=== PATIENT | female | born 1990 | race Two or more races ===

== ENCOUNTER → 2024-04-10 | Outpatient (CLI) | payer MEDICAID, SELFPAY ==
--- NOTE | 2024-04-10 | XR_ITS ---
Examination: CT abdomen with intravenous contrast CT pelvis with intravenous contrast 2-D coronal reconstructions 2-D sagittal reconstructions Date and time of exam:April 10, 2024 1027 hours Comparison October 22, 2021 INDICATIONS: Abdominal pain 3 weeks, hematochezia. CTDI: vol (mGy) 20.5 DLP: (mGycm) 727 Technique: Multiple axial sections of the abdomen and pelvis have been obtained. 64 slice high-resolution scanner used. 3 mm axial sections have been obtained, post intravenous injection 60 cc Isovue-370 2-D sagittal, coronal reconstructions obtained. Low dose protocols were performed. One or more of the following dose reduction techniques were used; automated exposure control, adjustment of the mA and/or KV according to patient size, use of iterative reconstruction technique. Findings: Diffuse fatty liver, marked hepatomegaly 26 cm Splenomegaly 16 cm Absent gallbladder Biliary stent satisfactory position No intra or extrahepatic biliary tract dilatation No pancreatic mass or peripancreatic edema No hydronephrosis No bowel obstruction 24 mm umbilical hernia containing incarcerated fat Absent gallbladder Anteverted uterus intrauterine device satisfactory position Right ovarian follicular cysts Densities within the urinary bladder which may represent blood clot with thickening of the urinary bladder wall up to 4 mm Osseous structures intact IMPRESSION: Significant hepatosplenomegaly Fatty liver Biliary stent satisfactory position 24 mm umbilical hernia containing incarcerated fat Multiple densities in the urinary bladder which may represent blood clot, other etiologies not excluded, recommend urinary bladder sonography follow-up
[2024-04-10 10:08] LABS: HCG Qualitative,Urine Negative
== END | disposition home or self-care (01) ==
LOC: CCTX 08:47
PROVIDERS: PCP Family Medicine; Referring Provider Internal Medicine; Visit Provider Internal Medicine
DX: R16.2 Hepatomegaly with splenomegaly, not elsewhere classified (principal); K76.0 Fatty (change of) liver, not elsewhere classified; K42.9 Umbilical hernia without obstruction or gangrene; N32.89 Other specified disorders of bladder; Z32.00 Encounter for pregnancy test, result unknown
CPT/HCPCS: 74177; 81025; A4649; Q9967

== ENCOUNTER 2024-04-23 18:55 | Emergency (ER) | payer MEDICAID, SELFPAY ==
[2024-04-23 19:30] VITALS: BP 144/93; PULSE 117; RESP 18; TEMP 37.2; O2SAT 97
--- NOTE | 2024-04-23 19:34 | EKG_ITS ---
[facility] Test Date: 2024-04-23 Pat Name: HERBIE GUZMAN Department: Room: - Gender: Female Youth Development Specialist: : 1990 Requested By: Rodo De La Cruz Order Number: [id number] Reading MD: Rodo De La Cruz Measurements Intervals [place] Rate: 120 P: 19 NV: 138 QRS: 33 QRSD: 73 T: 9 QT: 332 QTc: 470 Interpretive Statements SINUS TACHYCARDIA NONSPECIFIC T-WAVE ABNORMALITY ABNORMAL RHYTHM ECG Compared to ECG 10/11/2023 15:48:18 T-wave abnormality now present /store/S0/[id number].pdf
--- NOTE | 2024-04-23 19:34 | PD.EDRME ---
Rapid Medical Screening Exam RME Arrival date/time: 04/23/24 18:55 Chief Complaint: Abdominal Pain Time Seen by Provider: 04/23/24 18:58 Vital signs: Vital Signs Temperature 99.0 F 04/23/24 19:30 Pulse Rate 117 H 04/23/24 19:30 Respiratory Rate 18 04/23/24 19:30 Blood Pressure 144/93 H 04/23/24 19:30 Pulse Oximetry (%) 97 04/23/24 19:30 Oxygen Delivery Method Room Air 04/23/24 19:30 RME Narrative: RUQ abdominal pain and swelling x 3 days. Hx elvira with biliary stent last year, patient states she never got stent removed as instructed. Also c/o chest pain, anxiety.
--- NOTE | 2024-04-23 19:36 | XR_ITS ---
Examination: CT abdomen with intravenous contrast CT pelvis with intravenous contrast 2-D coronal reconstructions 2-D sagittal reconstructions Date and time of exam:April 23, 2024 1012 hrs. Comparison: April 10, 2024 Indications: Right-sided abdominal pain beginning 3 days ago. CTDI: vol (mGy) 21.11 DLP: (mGycm) 830 Technique: Multiple axial sections of the abdomen and pelvis have been obtained. 64 slice high-resolution scanner used. 3 mm axial sections have been obtained, post intravenous injection 60 cc Isovue-370 2-D sagittal, coronal reconstructions obtained. Low dose protocols were performed. One or more of the following dose reduction techniques were used; automated exposure control, adjustment of the mA and/or KV according to patient size, use of iterative reconstruction technique. Findings: Diffuse fatty infiltration throughout the liver with prominent hepatomegaly 27 cm Splenomegaly 15.6 cm Absent gallbladder Biliary stent satisfactory position No pancreatic mass No renal or ureteral calculi, no hydronephrosis Aorta normal size 21 mm umbilical hernia containing incarcerated fat No bowel obstruction Absent appendix Colonic diverticulosis Anteverted uterus with intrauterine device satisfactory position Urinary bladder wall thickening up to 9 mm Osseous structures intact Impression: Significant hepatosplenomegaly Fatty liver Biliary stent satisfactory position 21 mm umbilical hernia containing incarcerated fat Bladder wall thickening which may represent cystitis
[2024-04-23 20:28] LABS: Alanine Aminotransferase 29 U/L (10-49); Albumin, Serum 4.5 gm/dL (3.5-5.0); Albumin/Globulin Ratio 1.3 (1.2-2.2); Alkaline Phosphatase 219 U/L (46-116); Anion Gap 11 (7-16); Aspartate Amino Transferase 189 U/L (0-34); BUN/Creatinine Ratio 10 Ratio (12-20); Blood Urea Nitrogen < 5 mg/dL (9-23); Calcium 9.3 mg/dL (8.3-10.6); Calcium (Corrected) 9.3 mg/dL (8.5-10.1); Carbon Dioxide 26.5 mMol/L (20.0-31.0); Chloride 98 mMol/L (98-107); Creatinine (Component) 0.5 mg/dL (0.6-1.3); Globulin 3.5 gm/dL (2.3-3.5); Glucose 97 mg/dL (74-106); Lipase 50 U/L (12-53); Osmolality,Calculated 267 (275-295); Potassium 3.5 mMol/L (3.4-5.1); Sodium 135 mMol/L (136-145); Troponin I < 0.002 ng/mL (0.0-0.045); eGFR > 60 See Note
--- NOTE | 2024-04-23 20:45 | PD.EDABDPN ---
ED Abdominal Pain RME/HPI General Chief Complaint: Abdominal Pain Stated complaint: Right abdominal pain x 3 days Time seen by provider: 04/23/24 18:58 Arrival date/time: 04/23/24 18:55 Source: patient Mode of arrival: ambulatory Limitations: no limitations RME / HPI RME / HPI narrative: RUQ abdominal pain and swelling x 3 days. Hx elvira with biliary stent last year, patient states she never got stent removed as instructed. Also c/o chest pain, anxiety. Dr. Sumner?s Main ED Evaluation: 33-year-old female with history of hypertension who presents to the emergency department for complaints of right upper quadrant abdominal pain. Patient notes she had her gallbladder removed over a year ago with biliary stent placement. Patient states she was supposed to have stent removal 6 months ago but did not receive a call to schedule. She denies history of similar symptoms in the past. She notes burning sensation when urinating. She also notes she has urgency to urinate with little urine produced. She denies fever, chills, or any other medical complaints. Related Data Home Medications ?Medication ?Instructions ?Recorded ?Confirmed propranolol 20 mg tablet 20 mg PO BID 04/24/24 04/24/24 Allergies Allergy/AdvReac Type Severity Reaction Status Date / Time FISH Allergy Severe RASH AND Uncoded 10/15/23 05:58 SWELLING Review of Systems Review of Systems Systems Reviewed: All systems reviewed, normal except as documented Past Medical History Past Medical History NEUROLOGIC: Negative Neurological Disorders or Seizures CARDIAC: Negative Cardiac Disorders or Congestive Heart Failure RESPIRATORY: Negative Chronic Obstructive Pulmonary Disease (COPD) or Asthma GASTROINTESTINAL: Positive Gastrointestinal Disorders and Gall Bladder Disease GENITOURINARY: Negative Genitourinary Disorders or Renal Disease MUSCULOSKELETAL: Negative Musculoskeletal Disorders ENDOCRINE: Negative Endocrine Disorders, Diabetes Mellitus Type 1 or Diabetes Mellitus Type 2 HEMATOLOGIC: Negative Blood Disorders or Sickle Cell Disease OTHER HISTORY: Negative Autoimmune Disease, Falls, Blood Transfusions, Anesthesia Reactions or Organ Transplant Family History FAMILY HISTORY: Negative Family Psychiatric Problems, Family Respiratory Disorders, Family Cardiac Disorders, Family Gastrointestinal Problems, Family Cancer, Family Surgery or Family Anesthesia Reaction Surgical History SURGICAL: Negative Neurologic Surgery, Mastectomy, Lumpectomy, Hysterectomy, Tubal Ligation, Section, Vasectomy or Organ Transplant Social History SMOKING STATUS: Former smoker SECOND HAND EXPOSURE: No SUBSTANCE USE: does not use ED Exam Narrative Physical exam: GENERAL APPEARANCE: alert and oriented x 4, well-developed, well-nourished, no acute distress VITALS: All vitals were reviewed and the pulse ox is 97% on room air, which is normal according to my interpretation. HEENT: Normocephalic, atraumatic; pupils equal, round, reactive to light; EOMI; mucous membranes pink, moist; oropharynx clear NECK: Supple LUNGS: CTABL; no wheezes, no rales, no rhonchi HEART: Regular rate, regular rhythm; normal S1, S2; no murmurs ABDOMEN: There is hepatomegaly as well as splenomegaly. Minimally tender on palpation to right upper quadrant as well as right lower quadrant without rebound or guarding. No periumbilical tenderness. BACK: no CVA tenderness EXTREMITIES: atraumatic; no edema NEUROLOGIC: awake; alert and oriented x4; cranial nerves II-XII grossly intact; no focal sensory or motor deficits PSYCHIATRIC: appropriate mood and affect SKIN: warm, dry, normal color; no rashes General Limitations: Present no limitations Course Course Course Narrative: The patient was placed in ED observation care at 04/24/24 at 0250 hours. The patient was placed in ED observation care because of pending MRCP in the morning. The patients past medical history, social history, and family history were reviewed. The plan of care will include serial examinations. 0600: Care signed out to Dr. Pan (emergency physician). Past medical, surgical, social and family history reviewed. Vitals and home medications reviewed. Results and treatment plan discussed. They will assume the care of the patient at this time and will follow the patient, pending MRCP. At this time, observation has ended. Quality Measures none Orders Category Date Time Status CT Screening NOW Care 04/23/24 19:36 Active Tactical Deception Plans Officer Q4H START 00 Care 04/23/24 20:54 Active Continuous Pulse Oximetry NOW Care 04/23/24 20:54 Completed EKG (ED ONLY) *Do not use* NOW Care 04/23/24 19:34 Completed IV [Insert IV] NOW Care 04/23/24 20:54 Active MRI Screening NOW Care 04/24/24 02:59 Active Miscellaneous Nursing Order NOW Care 04/23/24 20:53 Active Miscellaneous Nursing Order NOW Care 04/23/24 20:54 Active NPO STAT Care 04/24/24 03:[address] abdomen pelvis w con Stat Exams 04/23/24 19:36 Completed EKG (ED Only) Stat Exams 04/23/24 19:34 Draft MR MRCP Stat Exams 04/24/24 Ordered US gall bladder Stat Exams 04/23/24 23:42 Taken CBC Stat Lab 04/23/24 19:59 Completed CMP [Comprehensive Metabolic Panel] Stat Lab 04/23/24 19:59 Completed Miranda-Coburn Virus Ab Panel* Stat Lab 04/24/24 03:35 Received HCG Qualitative,Urine Stat Lab 04/23/24 21:40 Completed Hepatitis A Antibody IgM Stat Lab 04/24/24 03:35 Received Hepatitis A Antibody, Total* Stat Lab 04/24/24 03:35 Received Hepatitis B Core Ab,Total* Stat Lab 04/24/24 03:35 Received Hepatitis B Core Antibody IgM Stat Lab 04/24/24 03:35 Received Hepatitis B DNA, Quant PCR* Stat Lab 04/24/24 03:35 Received Hepatitis B Surface Ab Stat Lab 04/24/24 03:35 Received Hepatitis B Surface Antigen Stat Lab 04/24/24 03:35 Received Hepatitis Be Antibody* Stat Lab 04/24/24 03:35 Received Hepatitis Be Antigen* Stat Lab 04/24/24 03:35 Received Hepatitis C Antibody Stat Lab 04/24/24 03:35 Received LDH (Lactate Dehydrogenase) Stat Lab 04/24/24 03:35 Completed Lactate (Lactic Acid) Stat Lab 04/23/24 21:25 Completed Lactate (Lactic Acid) Stat Lab 04/24/24 03:35 Completed Lipase Stat Lab 04/23/24 19:59 Completed Magnesium Stat Lab 04/24/24 03:35 Completed Partial Thromboplastin Time Stat Lab 04/24/24 03:35 Completed Phosphorous Stat Lab 04/24/24 03:35 Completed Procalcitonin Stat Lab 04/24/24 03:35 Completed Prothrombin Time with INR Stat Lab 04/24/24 03:35 Completed Troponin I Stat Lab 04/23/24 19:59 Completed UA [Urinalysis] Stat Lab 04/23/24 21:40 Completed Acetaminophen Ivpb [Ofirmev Inj] Med 04/23/24 20:55 Active 1,000 mg in 100 ml IV Q6H Morphine Inj Med 04/23/24 23:43 Active 2 mg IVP Q30M PRN Ondansetron Inj [Zofran Inj] Med 04/23/24 20:55 Discontinued 4 mg IV X1 ONE Piper/Tazo 3.375 gm [Zosyn] Med 04/23/24 23:44 Discontinued 3.375 gm in 50 ml IV X1 Sodium Chloride 0.9% 1000 ml [Ns] 1,000 ml Med 04/23/24 20:54 Discontinued IV 999 mls/hr Sodium Chloride 0.9% 1000 ml [Ns] 1,000 ml Med 04/24/24 00:51 Discontinued IV 999 mls/hr Reevaluation(s) Reevaluation #1: Patient is tachycardic in the 120s and still complains of abdominal pain. US gallbladder ordered to r/o a retained stone. Time: 23:41 Reevaluation #2: Patient is tachycardic and tachypneic. Due to the patient's persistent signs and symptoms, patient will need a MRCP in the morning. Hepatitis labs ordered. Time: 02:50 Vital Signs Vital signs: Vital Signs Temperature 99.0 F 04/23/24 19:30 Pulse Rate 117 H 04/23/24 19:30 Respiratory Rate 18 04/23/24 19:30 Blood Pressure 144/93 H 04/23/24 19:30 Pulse Oximetry (%) 97 04/23/24 19:30 Oxygen Delivery Method Room Air 04/23/24 19:30 Abdominal Pain MDM MDM Narrative MDM Narrative:: Scribe Attestation: Avelino Baltazar am scribing for and in the presence of Dr. Sumner. Provider Notation: Although this document has been carefully reviewed, there may still be some phonetic and other typographical errors. These errors are purely grammatical due to imperfections in the software program and should not be construed in any way to compromise the substance of the patient's medical care during this visit. Patient data External records reviewed:: [facility] previous records Clinical information provided by:: patient Social determinants that could affect healthcare access:: none Patient has the following chronic illnesses:: HTN, anxiety How is presenting disease/condition affected by chronic disease/condition?: uneffected by Evaluation data The following diagnostics were reviewed and interpreted by me:: lab results, radiology exam(s) and EKG tracing(s) Lab and/or radiology exams considered but not ordered:: None Interpretation Summary: CBC is normal, CMP is normal, Lactic Acid is normal, Lipase is normal, UA is negative for a UTI, HCG is negative, according to my interpretation. EKG done at 1940, sinus tachycardia, rate of 120, normal axis, no ectopy, no signs of acute ischemia, according to my interpretation. ---- [facility] Report Signed Patient: HERBIE GUZMAN Record#: [id number] Birthdate: 1990 Age/Sex: 33 / F Location: [facility] Attending Dr: Ordering Physician: Rodo De La Cruz PA-C Date of Service: 04/23/24 Procedure(s): CT abdomen pelvis w con Accession Number(s): [id number] cc: Eren Glaser MD; Cory De Luna MD; Rodo De La Cruz PA-C~ Examination: CT abdomen with intravenous contrast CT pelvis with intravenous contrast 2-D coronal reconstructions 2-D sagittal reconstructions Date and time of exam:April 23, 2024 1012 hrs. Comparison: April 10, 2024 Indications: Right-sided abdominal pain beginning 3 days ago. CTDI: vol (mGy) 21.11 DLP: (mGycm) 830 Technique: Multiple axial sections of the abdomen and pelvis have been obtained. 64 slice high-resolution scanner used. 3 mm axial sections have been obtained, post intravenous injection 60 cc Isovue-370 2-D sagittal, coronal reconstructions obtained. Low dose protocols were performed. One or more of the following dose reduction techniques were used; automated exposure control, adjustment of the mA and/or KV according to patient size, use of iterative reconstruction technique. Findings: Diffuse fatty infiltration throughout the liver with prominent hepatomegaly 27 cm Splenomegaly 15.6 cm Absent gallbladder Biliary stent satisfactory position No pancreatic mass No renal or ureteral calculi, no hydronephrosis Aorta normal size 21 mm umbilical hernia containing incarcerated fat No bowel obstruction Absent appendix Colonic diverticulosis Anteverted uterus with intrauterine device satisfactory position Urinary bladder wall thickening up to 9 mm Osseous structures intact Impression: Significant hepatosplenomegaly Fatty liver Biliary stent satisfactory position 21 mm umbilical hernia containing incarcerated fat Bladder wall thickening which may represent cystitis Dictated By: oCry De Luna MD Signed By: <Electronically signed by Cory De Luna MD in OV> 04/23/24 0530 ------- Telerad Preliminary Report Draft Patient: HERBIE GUZMAN. Record#: [id number] Birthdate: 1990 Age/Sex: 33 / F Location: [facility] Attending Dr: Ordering Physician: Date of Service: Procedure(s): Accession Number(s): cc: ~ Right upper quadrant abdominal ultrasound with doppler and wave doppler spectral analysis. April 24, 2024 at 0057 hours Clinical history: RUQ and epigastric pain, status post cholecystectomy. Rule out retained stone. Technique: Grayscale and color flow images of the right upper quadrant are provided. Hepatic and portal veins were also imaged with color flow images. Comparison: No prior study is available for comparison. Findings: The liver is enlarged demonstrates increased echogenicity. No intrahepatic biliary ductal dilatation. Status post cholecystectomy. The common bile duct is dilated in caliber at 5.8 mm. The pancreas is within normal limits. The right kidney is within normal limits. The main portal vein is patent with hepatopetal flow and normal wave Doppler spectral analysis. Impression: Mild dilated CBD in status post cholecystectomy, possibly functional. If choledocholithiasis is clinically suspected consider correlation with MRCP. Hepatomegaly associated with liver steatosis is suspicious for steatohepatitis. Report Electronically Signed By: Rene Garcia 04/24/2024 2:38:24 AM [EST] Medications / Prescriptions Medications or Prescriptions considered but not ordered:: None Medication administrations:: Medication Administration History Acetaminophen (Ofirmev Inj) 1,000 mg in 100 mls @ 250 mls/hr IV Q6H MELVIN Stop: 04/24/24 15:18 Last Admin: 04/24/24 04:05 Dose: Not Given Documented By: CVL Non-Admin Reason: Other, see note Comments: NOT NEEDED Infusion: 04/23/24 22:35 Dose: Infused Documented By: Admin: 04/23/24 21:41 Dose: 250 mls/hr Documented By: Morphine Sulfate (Morphine Sulf Inj 10 Mg/Ml Vial) 2 mg IVP Q30M PRN PRN Reason: abdominal pain Last Admin: 04/24/24 03:41 Dose: 2 mg Documented By: Admin: 04/23/24 23:47 Dose: 2 mg Documented By: CVL Discontinued Medications Sodium Chloride (Ns) 1,000 mls @ 999 mls/hr IV .Q1H1M ONE Stop: 04/23/24 21:54 Last Infusion: 04/23/24 23:39 Dose: Infused Documented By: Admin: 04/23/24 21:37 Dose: 999 mls/hr Documented By: EH Piperacillin/Tazobactam/Dextrose (Zosyn) 3.375 gm in 50 mls @ 100 mls/hr IV X1 ONE Stop: 04/24/24 00:13 Last Infusion: 04/24/24 00:46 Dose: Infused Documented By: Admin: 04/23/24 23:47 Dose: 100 mls/hr Documented By: CVL Sodium Chloride (Ns) 1,000 mls @ 999 mls/hr IV .Q1H1M ONE Stop: 04/24/24 01:51 Last Infusion: 04/24/24 02:27 Dose: Infused Documented By: Admin: 04/24/24 01:18 Dose: 999 mls/hr Documented By: CVL Ondansetron HCl (Ondansetron Inj 2 Mg/Ml Inj 2 Ml) 4 mg IV X1 ONE; Protocol Stop: 04/23/24 20:56 Last Admin: 04/23/24 21:39 Dose: 4 mg Documented By: EH As above, if any Consultations Consultation(s) initiated? (list below): No Diagnosis Differential diagnosis abdominal pain: other (Biliary stent migration, biliary leak, acute hepatitis, intra abdominal abscess) Most likely diagnosis given after review of the tests above:: hepatosplenomegaly, any other possible dx are pending at sign out. Admission Indicated Admission indicated?: not indicated Admission Request Was there a request for admission?: No Disposition Plan Disposition Plan: other (specify) (Signed out to Dr. Pan at 0600 pending [facility].) Discharge Plan Plan Disposition Comment: Stable at sign out. Prescriptions/Referrals Prescriptions/Med Rec: No Action propranolol 20 mg tablet 20 mg PO BID Patient Comments: TAKE 1 TABLET BY MOUTH TWICE A DAY FOR 30 DAYS Referrals: Eren Glaser MD [Primary Care Provider] - In 1 week Problem List Clinical Impression: Hepatosplenomegaly Patient/Caregiver Discharge Instructions Print Language: Setswana
[2024-04-23 20:56] LABS: Basophils % (Auto) 0 % (0-2.5); Eosinophils # (Auto) 0.2 Thou/mm3 (0.0-0.5); Eosinophils % (Auto) 3 % (0-10); Hematocrit 30.6 % (36.0-46.0); Immature Granulocytes % (Auto) 1 % (0-0); Immature Granulocytes Auto 0.08 Thou/mm3 (0.00-0.00); Lymphocytes # (Auto) 1.1 Thou/mm3 (1.0-4.8); Lymphocytes % (Auto) 14 % (10-50); Mean Corpuscular HGB Conc 32.7 g/dl (31.0-37.0); Mean Corpuscular Hemoglobin 31.5 pg (25.0-35.0); Mean Corpuscular Volume 97 fL (80-100); Monocytes # (Auto) 0.4 Thou/mm3 (0.0-0.8); Monocytes % (Auto) 5 % (0-12); Neutrophils # (Auto) 5.6 Thou/mm3 (1.8-7.7); Neutrophils % (Auto) 76 % (37-80); Nucleated Red Blood Cell % 0 /100 WBC (0); Platelet Count 213 Thou/mm3 (140-440); RDW Standard Deviation 49.5 fL (36.4-46.3); Red Blood Count 3.17 Miln/mm3 (4.00-5.20); White Blood Count 7.4 Thou/mm3 (3.6-11.0)
[2024-04-23 21:15] VITALS: BP 126/89; PULSE 116; RESP 19; TEMP 37.7; O2SAT 97
--- NOTE | 2024-04-23 21:35 | PC.NURSE ---
PT CAME TO ER FROM HOME, C/O RIGHT UPPER ABD PAIN X 3 DAYS, PT C/O SHE IS BLOATED TOO. NO N/V/D.
[2024-04-23 21:37] VITALS: BP 128/89; PULSE 115; RESP 18; TEMP 36.8; O2SAT 96
[2024-04-23 21:37] LABS: Lactate (Lactic Acid) 1.4 mMol/L (0.4-2.0)
[2024-04-23] MEDS: SODIUM CHLORIDE 0.9% 1000 ML 1,000 ML 999 ML IV (21:37)
[2024-04-23] MEDS: ONDANSETRON INJ 2 MG/ML INJ 2 ML 4 MG IV (21:39)
[2024-04-23] MEDS: ACETAMINOPHEN IVPB 1,000 MG/100 ML VIAL 250 MG IV (21:41)
[2024-04-23 21:43] LABS: Collection Type, Urine Clean Catch
[2024-04-23 21:58] LABS: HCG Qualitative,Urine Negative
[2024-04-23 22:00] LABS: Bacteria,Urine Rare; Bilirubin,Urine Negative (Negative); Blood,Urine 1+ (Negative); Budding Yeast,Urine Present; Color,Urine Yellow (Lt Yel-Yel); Glucose, Urine Negative (Negative); Ketones,Urine Negative (Negative); Leukocyte Esterase,Urine Negative (Negative); Nitrite,Urine Negative (Negative); PH,Urine 7.5 (5.0-7.0); Protein,Urine Trace (Neg - Trace); RBC,Urine 3 /hpf (0-3); Specific Gravity,Urine 1.008 (1.001-1.035); Squamous Epithelial Cell,Urine 4 /hpf (0-5); WBC,Urine 1 /hpf (0-5)
[2024-04-23 22:02] LABS: Clarity,Urine Hazy (Clear/Hazy)
--- NOTE | 2024-04-23 23:42 | XR_ITS ---
Examination: Abdomen sonogram, Limited Date and time of exam: April 24, 2024 1257 hours INDICATIONS: Right upper abdominal pain beginning 2 days ago, cholecystectomy 1 year ago, diagnosis hepatosplenomegaly Technique: Real-time lujan scale transabdominal sonographic images of the upper abdomen obtained. Findings: Absent gallbladder Common bile duct 0.6 cm no stones Pancreatic head is prominent 4.7 cm Hepatomegaly 23.1 cm fatty infiltration no focal liver lesions Normal hepatopedal portal venous flow Patent IVC IMPRESSION: Absent gallbladder No common bile duct stones, common bile duct 0.6 cm If biliary colic is a clinical consideration, consider MRCP follow-up Moderate hepatomegaly
[2024-04-23] MEDS: PIPER/TAZO 3.375 GM 3.375 GM/50 ML BAG IV (23:47)
[2024-04-23] MEDS: MORPHINE SULF INJ 10 MG/ML VIAL 2 MG IVP (23:47)
[2024-04-24] VITALS (9 sets, daily range): BP systolic 111–138; BP diastolic 77–94; PULSE 99–123; RESP 15–24; TEMP 36.7–37; O2SAT 96–98
--- NOTE | 2024-04-24 | XR_ITS ---
MRI abdomen, without contrast. MRCP Date and time of exam: April 24, 2024 0706 hrs. Indications: Right upper abdominal pain and abdominal swelling beginning 3 days ago, history cholecystectomy and stent placement one year ago Technique: Multiple axial and coronal images of the abdomen have been obtained with the Siemens 1.5T MRI scanner. Images obtained included T1 weighted transverse images, T2-weighted transverse images, T2-weighted transverse images fat-suppressed, T2 weighted haste fat suppressed transverse images, T1 weighted images, in and out of phase images, T2-weighted coronal images, breath hold, T2 weighted haze coronal images as well as T2 weighted coronal thick slab images, MRCP. Findings: Marked hepatomegaly 27 cm Splenomegaly 17 cm Magnetic susceptibility artifact at the level of the stent which obscures detail of the common duct Pancreatic duct is not dilated No peripancreatic edema Aorta normal size No hydronephrosis No ascites Impression: Significant hepatosplenomegaly Magnetic susceptibility artifact secondary to the biliary stent obscures detail of the entire common hepatic common bile duct Negative for pancreatitis Negative for ascites Consider HIDA scan follow-up to assess for blockage of the common bile duct
[2024-04-24] MEDS: SODIUM CHLORIDE 0.9% 1000 ML 1,000 ML 999 ML IV (01:18)
--- NOTE | 2024-04-24 02:39 | PRELIM_ITS ---
Right upper quadrant abdominal ultrasound with doppler and wave doppler spectral analysis. April at 0057 hours Clinical history: RUQ and epigastric pain, status post cholecystectomy. Rule out retained stone. Technique: Grayscale and color flow images of the right upper quadrant are provided. Hepatic and portal veins were also imaged with color flow images. Comparison: No prior study is avai lable for comparison. Findings:The liver is enlarged demonstrates increased echogenicity. No intrahep atic biliary ductal dilatation. Status post cholecystectomy.The common bile duct is dilated in calibe r at 5.8 mm. The pancreas is within normal limits.The right kidney is within normal limits.The main p ortal vein is patent with hepatopetal flow and normal wave Doppler spectral analysis.Impression:Mild dilated CBD in status post cholecystectomy, possibly functional. If choledocholithiasis is clinically suspected consider correlation with MRCP.Hepatomegaly associated with liver steatosis is suspicious for steatohepatitis. Report Electronically Signed By: Rene Garcia 04/24/2024 2:38:24 AM [EST]
[2024-04-24 03:41] LABS: Lactate (Lactic Acid) 1.3 mMol/L (0.4-2.0)
[2024-04-24] MEDS: MORPHINE SULF INJ 10 MG/ML VIAL 2 MG IVP ×2 (03:41→06:35)
[2024-04-24 04:06] LABS: INR 1.2 (0.9-1.3); Partial Thromboplastin Time 28.4 Seconds (22.0-36.0)
[2024-04-24 04:08] LABS: LDH (Lactate Dehydrogenase) 200 U/L (120-246); Magnesium 1.3 mg/dL (1.6-2.6); Phosphorous 4.4 mg/dL (2.4-5.1)
[2024-04-24 04:11] LABS: Procalcitonin 0.26 ng/ml (0.0-0.49)
--- NOTE | 2024-04-24 04:30 | PC.NURSE ---
ASSUME CARE OF PT AT THIS TIME
[2024-04-24 06:07] LABS: Hepatitis A Antibody IgM Non Reactive (Non React); Hepatitis B Core Antibody IgM Non Reactive (Non React); Hepatitis B Surface Ab NonReact(Not Immune) (Immune); Hepatitis B Surface Antigen Non Reactive (Non React); Hepatitis C Antibody Non Reactive (Non React)
--- NOTE | 2024-04-24 07:39 | PD.EDADDENDU ---
Emergency Room Addendum <Tia Bautista - Last Filed: 04/24/24 17:26> Addendum Narrative: At 6 AM on 04/24/2024, the care of the patient was transferred to Dr. Sumner, see his notes for complete H&P and ED course. I reviewed all diagnostic test results: My interpretation of the GB ultrasound report is absent gallbladder, no common bile duct stones. My interpretation of the CT is biliary stent satisfactory position. My interpretation of the MRCP is magnetic susceptibility artifact secondary to the biliary stent obscures detail of the entire common hepatic common bile duct. My interpretation of the HIDA scan is negative for common bile duct obstruction. Blood tests and urine tests At this point, diagnoses include Treatment here included IV fluids, Morphine, Tylenol, Zosyn. Significant improvement Not yet done: I discussed the case with our hospitalist.? About the presentation and exam and diagnostics and treatments here.? And need of further care in the hospital.? Will accept the patient. Not yet done: Based on my best medical judgment, made decision no further evaluation or treatment indicated at this time.? Patient understands and agrees to the discharge instructions customized and printed, see below. Gurvinder Pan MD <Gurvinder Pan MD - Last Filed: 04/25/24 07:15> Addendum Narrative: At 6 AM on 04/24/2024, the care of the patient was transferred to Dr. Sumner, see his notes for complete H&P and ED course. I reviewed all pending diagnostic test results: My interpretation of the GB ultrasound report is absent gallbladder, no common bile duct stones. My interpretation of the CT is biliary stent satisfactory position. My interpretation of the MRCP is magnetic susceptibility artifact secondary to the biliary stent obscures detail of the entire common hepatic common bile duct. My interpretation of the HIDA scan is negative for common bile duct obstruction. At this point, diagnoses include gastritis. Treatment here included IV fluids, Morphine, Tylenol, Zosyn, Toradol, Dilaudid, and MgSO4 2 gram IV Significant improvement noted. Not yet done: I discussed the case with our hospitalist.? About the presentation and exam and diagnostics and treatments here.? And need of further care in the hospital.? Will accept the patient. Not yet done: Based on my best medical judgment, made decision no further evaluation or treatment indicated at this time.? Patient understands and agrees to the discharge instructions customized and printed, see below. Gurvinder Pan MD
--- NOTE | 2024-04-24 08:20 | PC.NURSE ---
Pt. here from home to room 19, pt. states she came for right upper quadrant abdominal pain, pt. states she has to sit up because if she lays down she can feel her right upper quadrant cramping, pt. states she tried to eat yesterday and it would all come back up. Pt. went earlier to MRI.
--- NOTE | 2024-04-24 08:31 | XR_ITS ---
Examination: JAYA hepatobiliary radioisotope scan Date and time of exam: April 24, 2024 1042 hours INDICATIONS: Right upper abdominal pain epigastric pain today, patient is status post cholecystectomy, patient has elevated bilirubin liver function tests Technique: 5.8 mCi of 99M Hepatolite administered. Serial imaging then obtained from immediate through 60 minutes. Findings: Radioisotope activity within the liver is reasonably homogenous. Common bile duct small bowel activity noted Impression: Negative for common bile duct obstruction, as isotope activity is noted in the common bile duct and small bowel
[2024-04-24] MEDS: HYDROmorphone INJ 2 MG/ML VIAL 1 MG IVP ×2 (08:44→12:38)
[2024-04-24] MEDS: KETOROLAC INJ 30 MG/ML VIAL IVP (08:50)
[2024-04-24] MEDS: Magnesium Sulfate 2 GM Ivpb 2 GM/50 ML BAG IV (08:51)
[2024-04-24] MEDS: METOPROLOL TARTRATE 25 MG TABLET PO (09:04)
--- NOTE | 2024-04-24 10:50 | PC.NURSE ---
Pt. to Nuc. med for scan.
[2024-05-03 19:49] LABS: EBV VCA Ab (IgM) <36.00 U/mL; Hepatitis B Virus DNA* NOT DETECTED
[2024-05-05 06:58] LABS: EBV Ab Interpretation PAST; Hepatitis A Antibody, Total* REACTIVE; Hepatitis B Core Ab,Total* NONREACTIVE; Hepatitis B DNA PCR NOT DETECTED Log IU/mL; Hepatitis Be Antibody* NONREACTIVE; Hepatitis Be Antigen* NONREACTIVE
== END 2024-04-24 15:00 | disposition home or self-care (01) ==
PROVIDERS: Emergency Medicine; Physician Assistant; Emergency Provider Emergency Medicine; PCP Family Medicine
DX: K25.9 Gastric ulcer, unspecified as acute or chronic, without hemorrhage or perforation (principal); R16.2 Hepatomegaly with splenomegaly, not elsewhere classified; K83.8 Other specified diseases of biliary tract; K76.0 Fatty (change of) liver, not elsewhere classified; K42.0 Umbilical hernia with obstruction, without gangrene; N32.89 Other specified disorders of bladder; R00.0 Tachycardia, unspecified; I10 Essential (primary) hypertension; Z87.891 Personal history of nicotine dependence; Z90.49 Acquired absence of other specified parts of digestive tract
CPT/HCPCS: 36415; 74177; 76705; 78227; 80053; 81001; 81025; 83605; 83615; 83690; 83735; 84100; 84145; 84484; 85025; 85610; 85730; 86664; 86665; 86704; 86705; 86706; 86707; 86708; 86709; 86803; 87340; 87350; 87517; 93005; 96361; 96365; 96366; 96367; 96375; 96376; 99285; A4649; A9537; J0131; J1885; J2270; J2405; J2543; J3475; J3490; J7030; Q9967; S8037; 74181; A9270

== ENCOUNTER 2024-12-16 10:19 | Emergency (ER) | payer MEDICAID, SELFPAY ==
[2024-12-16 10:51] VITALS: BP 138/100; PULSE 135; RESP 20; TEMP 37.2; O2SAT 97
--- NOTE | 2024-12-16 11:00 | EKG_ITS ---
[facility] Test Date: 2024-12-16 Pat Name: HERBIE GUZMAN Department: Room: - Gender: Female Dental Assistant: : 1990 Requested By: Robinson Arguelles Order Number: [id number] Reading MD: Robinson Arguelles Measurements Intervals [place] Rate: 131 P: 30 MD: 134 QRS: 19 QRSD: 82 T: 22 QT: 321 QTc: 474 Interpretive Statements SINUS TACHYCARDIA LOW QRS VOLTAGE IN PRECORDIAL LEADS [QRS DEFLECTION < 1.0 mV IN CHEST LEADS] ABNORMAL RHYTHM ECG Compared to ECG 04/23/2024 19:40:59 Low QRS voltage now present T-wave abnormality no longer present /store/[id number].pdf
--- NOTE | 2024-12-16 11:01 | PD.EDRME ---
Rapid Medical Screening Exam RME Arrival date/time: 12/16/24 10:19 34-year-old female with a history of hypertension presents to the emergency room with a chief complaint of withdrawing from alcohol. Patient states her last drink was yesterday and she is a chronic alcoholic. I have greeted and performed a focused initial assessment of this patient. A comprehensive ED assessment and evaluation of the patient, analysis of all test results, and completion of the medical decision making process will be conducted by additional ED providers. Chief Complaint: Alcohol Time Seen by Provider: 12/16/24 10:50 Vital signs: Vital Signs Temperature 98.9 F 12/16/24 10:51 Pulse Rate 135 H 12/16/24 10:51 Respiratory Rate 20 12/16/24 10:51 Blood Pressure 138/100 H 12/16/24 10:51 Pulse Oximetry (%) 97 12/16/24 10:51 Vital signs reviewed by provider: Yes
[2024-12-16 11:42] LABS: Basophils # (Auto) 0.1 Thou/mm3 (0.0-0.2); Basophils % (Auto) 1 % (0-2.5); Eosinophils # (Auto) 0.0 Thou/mm3 (0.0-0.5); Eosinophils % (Auto) 0 % (0-10); Hematocrit 41.7 % (36.0-46.0); Hemoglobin 14.1 g/dL (12.0-16.0); Immature Granulocytes Auto 0.04 Thou/mm3 (0.00-0.00); Lymphocytes # (Auto) 3.5 Thou/mm3 (1.0-4.8); Lymphocytes % (Auto) 36 % (10-50); Mean Corpuscular HGB Conc 33.8 g/dl (31.0-37.0); Mean Corpuscular Hemoglobin 29.1 pg (25.0-35.0); Mean Corpuscular Volume 86 fL (80-100); Monocytes # (Auto) 0.3 Thou/mm3 (0.0-0.8); Monocytes % (Auto) 3 % (0-12); Neutrophils # (Auto) 5.7 Thou/mm3 (1.8-7.7); Neutrophils % (Auto) 59 % (37-80); Nucleated Red Blood Cell # 0.00 Thou/mm3 (0.00-0.00); Nucleated Red Blood Cell % 0 /100 WBC (0); Platelet Count 273 Thou/mm3 (140-440); RDW Standard Deviation 41.7 fL (36.4-46.3); Red Blood Count 4.84 Miln/mm3 (4.00-5.20); White Blood Count 9.7 Thou/mm3 (3.6-11.0)
[2024-12-16 12:04] LABS: INR 1.1 (0.9-1.3); Partial Thromboplastin Time 26.7 Seconds (22.0-36.0); Prothrombin Time 11.9 Seconds (9.0-12.2)
[2024-12-16 12:07] LABS: B-Type Natriuretic Peptide < 20 pg/mL (0-100)
[2024-12-16 12:16] LABS: Collection Type, Urine Clean Catch
[2024-12-16 12:18] LABS: Alanine Aminotransferase 48 U/L (10-49); Albumin, Serum 4.9 gm/dL (3.5-5.0); Albumin/Globulin Ratio 1.5 (1.2-2.2); Alcohol, Blood Medical 358.4 mg/dL (0-10.0); Alkaline Phosphatase 113 U/L (46-116); Anion Gap 16 (7-16); Aspartate Amino Transferase 37 U/L (0-34); BUN/Creatinine Ratio 11 Ratio (12-20); Bilirubin,Total 1.5 mg/dL (0.3-1.2); Blood Urea Nitrogen 8 mg/dL (9-23); Calcium 9.7 mg/dL (8.3-10.6); Calcium (Corrected) 9.7 mg/dL (8.5-10.1); Carbon Dioxide 21.0 mMol/L (20.0-31.0); Chloride 107 mMol/L (98-107); Creatinine (Component) 0.7 mg/dL (0.6-1.3); Estimated Creatinine Clearance 101.7 mL/min (>60); Globulin 3.3 gm/dL (2.3-3.5); Glucose 114 mg/dL (74-106); Magnesium 1.7 mg/dL (1.6-2.6); Osmolality,Calculated 286 (275-295); Potassium 3.7 mMol/L (3.4-5.1); Sodium 144 mMol/L (136-145); Total Protein 8.2 gm/dL (5.7-8.2); Troponin I < 0.002 ng/mL (0.0-0.045); eGFR > 60 See Note
[2024-12-16 12:26] LABS: Bacteria,Urine 1+; Bilirubin,Urine Negative (Negative); Blood,Urine 1+ (Negative); Color,Urine Lt-Yellow (Lt Yel-Yel); Glucose, Urine Negative (Negative); Ketones,Urine Negative (Negative); Leukocyte Esterase,Urine Negative (Negative); Nitrite,Urine Negative (Negative); PH,Urine 6.5 (5.0-7.0); Protein,Urine Trace (Neg - Trace); RBC,Urine 2 /hpf (0-3); Specific Gravity,Urine 1.009 (1.001-1.035); Squamous Epithelial Cell,Urine 7 /hpf (0-5); Urobilinogen,Urine Negative mg/dL (0.0-1.0); WBC,Urine 1 /hpf (0-5)
[2024-12-16 12:30] LABS: Clarity,Urine Hazy (Clear/Hazy); Culture Indicated,Urine Yes
[2024-12-16 12:35] LABS: Amphetamine/Methamp Scrn,U Negative (Negative); Barbiturate Screen,Urine Negative (Negative); Benzodiazepines Screen,Urine Negative (Negative); Benzoylecgonine Screen, Ur Negative (Negative); Fentanyl Screen,Urine Negative (Negative); Opiate Screen,Urine Negative (Negative); THC Screen,Urine Negative (Negative)
--- NOTE | 2024-12-16 13:25 | EDNOTE_ITS ---
<Statement entered by Anat Dumont MD - 12/27/24 11:18> As co-signing physician, I was present and available for consult prn. I concur with the plan and care as documented by the midlevel provider. ED General RME/HPI General Chief complaint: Alcohol Stated complaint: HERE TO DETOX FROM ALCOHOL Time Seen by Provider: 12/16/24 10:50 Arrival date/time: 12/16/24 10:19 CC: Requesting alcohol rehab HPI patient has been on a 4-day drinking binge is not eating during this time patient is awake alert oriented no slurred speech ambulating without complication stating that she has not been in rehab before is looking for the patient denies any suicidal or homicidal ideation. RME / HPI RME / HPI narrative: 12/16/24 10:19 34-year-old female with a history of hypertension presents to the emergency room with a chief complaint of withdrawing from alcohol. Patient states her last drink was yesterday and she is a chronic alcoholic. I have greeted and performed a focused initial assessment of this patient. A com prehensive ED assessment and evaluation of the patient, analysis of all test results, and completion of the medical decision making process will be conducted by additional ED providers. Related Data Home Medications ?Medication ?Instructions ?Recorded ?Confirmed propranolol 20 mg tablet 20 mg PO BID 04/24/24 Previous Rx's ?Medication ?Instructions ?Recorded acetaminophen 300 mg-codeine 30 mg 2 tab PO TID PRN pa in #10 tabs 04/24/24 tablet famotidine 40 mg tablet 40 mg PO QDAY #30 tabs 04/24 omeprazole 40 mg capsule,delayed 40 mg PO QDAY #30 cap s 04/24/24 release Allergies Allergy/AdvReac Type Severity Reaction Status Date / Time FISH Allergy Severe RASH AND Uncoded 12/16/24 10:21 SWELLING Review of Systems Review of Systems Narrative Review of Systems: GEN: No fever, no chills, no weight loss EYES: No discharge, no visual changes, no pain HEENT: No ear pain, no congestion, no sore throat PULM: No shortness of breath, no cough, no congestion CV: No chest pain, no dyspnea on exertion, no palpitations GI: No nausea, no vomiting, no diarrhea, no pain, no constipation : No frequency, no urgency, no dysuria MUSC/SKEL: No joint pain, no back pain SKIN: No rash PSYCH: No hallucinations, no depression HEME/LYMPH: No easy bleeding or bruising tendencies NEURO: No weakness, no headache Past Medical History Past Medical History NEUROLOGIC: Negative Neurological Disorders or Seizures CARDIAC: Negative Cardiac Disorders or Congestive Heart Failure RESPIRATORY: Negative Chronic Obstructive Pulmonary Disease (COPD) or Asthma GASTROINTESTINAL: Positive Gastrointestinal Disorders and Gall Bladder Disease GENITOURINARY: Negative Genitourinary Disorders or Renal Disease MUSCULOSKELETAL: Negative Musculoskeletal Disorders ENDOCRINE: Negative Endocrine Disorders, Diabetes Mellitus Type 1 or Diabetes Mellitus Type 2 HEMATOLOGIC: Negative Blood Disorders or Sickle Cell Disease OTHER HISTORY: Negative Autoimmune Disease, Falls, Blood Transfusions, Anesthesia Reactions or Organ Transplant Family History FAMILY HISTORY: Negative Family Psychiatric Problems, Family Respiratory Disorders, Family Cardiac Disorders, Family Gastrointestinal Problems, Family Cancer, Family Surgery or Family Anesthesia Reaction Surgical History SURGICAL: Negative Neurologic Surgery, Mastectomy, Lumpectomy, Hysterectomy, Tubal Ligation, Section, Vasectomy or Organ Transplant Social History SMOKING STATUS: Current every day smoker SECOND HAND EXPOSURE: No SUBSTANCE USE: does not use ED Exam Narrative Physical exam: [General: Obese not in any acute distress Head normocephalic HEENT: Within acceptable limits Neck is supple nontender Chest equal chest rise nontender to palpation Respiratory: Clear to auscultation no wheezes crackles or rubs CV: Rate rhythm is regular no murmurs rubs or clicks Abdomen is distended secondary to body habitus soft nontender no masses positive bowel sounds all 4 quadrants Back: No CVA tenderness no spinous process tenderness from cervical spine thoracic and lumbar spine Skin: Intact no petechiae rash induration ulceration or crepitus Extremities: Moving all extremity against resistance cap refill less than 2 seconds neurosensory intact Neuro: Awake alert oriented x3 Glascow coma 15 no focal deficits] Head Head exam: Present atraumatic Course Quality Measures none Orders Category Date Time Status EKG (ED ONLY) *Do not use* NOW Care 12/16/24 11:00 Completed EKG (ED Only) Stat Exams 12/16/24 11:00 Draft Alcohol, Blood Medical Stat Lab 12/16/24 11:18 Completed B-Type Natriuretic Peptide Stat Lab 12/16/24 11:18 Completed CBC Stat Lab 12/16/24 11:18 Completed Comprehensive Metabolic Panel Stat Lab 12/16/24 11:18 Completed Drug Screen,Urine Stat Lab 12/16/24 12:00 Completed Magnesium Stat Lab 12/16/24 11:18 Completed Partial Thromboplastin Time Stat Lab 12/16/24 11:18 Completed Prothrombin Time with INR Stat Lab 12/16/24 11:18 Completed Troponin I Stat Lab 12/16/24 11:18 Completed Urinalysis, C/S if Indicated Stat Lab 12/16/24 12:00 Completed Urine Culture Stat Lab 12/16/24 12:00 Received Vital Signs Vital signs: Vital Signs Temperature 98.9 F 12/16/24 10:51 Pulse Rate 135 H 12/16/24 10:51 Respiratory Rate 20 12/16/24 10:51 Blood Pressure 138/100 H 12/16/24 10:51 Pulse Oximetry (%) 97 12/16/24 10:51 Discharge Plan Plan Patient Disposition: HOME (Self Care) Patient condition on transfer: Stable Prescriptions/Referrals Prescriptions/Med Rec: No Action propranolol 20 mg tablet 20 mg PO BID Patient Comments: TAKE 1 TABLET BY MOUTH TWICE A DAY FOR 30 DAYS famotidine 40 mg tablet 40 mg PO QDAY Qty: 30 0RF acetaminophen-codeine 300-30 mg tablet 2 tab PO TID MDD 6 PRN (Reason: pain) Qty: 10 0RF omeprazole 40 mg capsule,delayed release(DR/EC) 40 mg PO QDAY Qty: 30 0RF Referrals: Eren Glaser MD [Primary Care Provider] - In 1 week Problem List Clinical Impression: Alcohol intoxication, Alcoholism Patient/Caregiver Discharge Instructions Other Activity Instructions:: Follow-up with the handouts given from the case management. If there is a worsening of symptoms return the emergency room for reevaluation. Education Materials: Alcoholism Resources, Alcohol Addiction Print Language: Liberian Stand Alone Forms: Caitlin Award Info., Work/School Release, Patient Portal Info Letter PA/DEMAND PLANNING MANAGER Supervising Physician PA/DEMAND PLANNING MANAGER Supervising Physician: Darrick Licona ENP [facility] Clinical Information Provided by patient Medical Records Reviewed [facility] Meds/Rx Considered, not Ordered None Labs/Rad/Tests considered, not Ordered None Chronic Illness/Social Conditions Add or document further as needed: Alcohol really EKG EKG not done Lab Interpretation Lab(s) interpretation(s): CBC shows no acute leukocytosis anemia thrombocytopenia coags within acceptable limits CMP shows no significant electrolyte imbalances glucose of 114 no renal impa irment transaminitis but the T. bili is elevated at 1.5 Troponin and BNP is negative Urine is negative for UTI. UDS is negative Alcohol level is 358 Imaging Imaging interpretation: none and interpreted by me Diagnosis Differential diagnosis: Alcohol intoxication alcohol dependency Dispositon Disposition: Discharge Home
[2024-12-16 13:44] VITALS: PULSE 105; RESP 16; O2SAT 99
== END 2024-12-16 13:44 | disposition home or self-care (01) ==
PROVIDERS: Nurse Practitioner Family; Emergency Provider Emergency Medicine; PCP Family Medicine
DX: F10.229 Alcohol dependence with intoxication, unspecified (principal); R00.0 Tachycardia, unspecified; Y90.8 Blood alcohol level of 240 mg/100 ml or more
CPT/HCPCS: 36415; 80053; 80307; 80320; 81001; 83735; 83880; 84484; 85025; 85610; 85730; 87086; 93005; 99283; G0480

== ENCOUNTER 2024-12-16 21:57 | Emergency (ER) | payer MEDICAID, SELFPAY ==
[2024-12-16 21:59] VITALS: BMI 35.9
--- NOTE | 2024-12-16 22:02 | EKG_ITS ---
[facility] Test Date: 2024-12-16 Pat Name: HERBIE GUZMAN Department: Room: - Gender: Female Meat Seafood Associate: : 1990 Requested By: ED Temporary Provider Order Number: [id number] Reading MD: ED Temporary Provider Measurements Intervals [place] Rate: 132 P: 38 [place]: 149 QRS: 25 QRSD: 64 T: 31 QT: 318 QTc: 472 Interpretive Statements SINUS TACHYCARDIA WITH FREQUENT VENTRICULAR PREMATURE COMPLEXES LOW QRS VOLTAGE IN PRECORDIAL LEADS [QRS DEFLECTION < 1.0 mV IN CHEST LEADS] MODERATE ST DEPRESSION [0.05+ mV ST DEPRESSION] Compared to ECG 04/23/2024 19:40:59 Ventricular premature complex(es) now present Low QRS voltage now present ST (T wave) deviation now present T-wave abnormality no longer present /store/S0/[id number].pdf
--- NOTE | 2024-12-16 22:09 | EDNOTE_ITS ---
ED Arrhythmia Palp. RME/HPI General Chief Complaint: Arrhythmia/Palpitations Stated Complaint: FAST HEART RATE AND DIZZINESS Time Seen by Provider: 12/16/24 22:06 Arrival date/time: 12/16/24 21:57 RME / HPI RME / HPI narrative: See [facility] for Dr. Pan's HPI documentation. Related Data Home Medications ?Medication ?Instructions ?Recorded ?Confirmed propranolol 20 mg tablet 20 mg PO BID 04/24/24 Previous Rx's ?Medication ?Instructions ?Recorded acetaminophen 300 mg-codeine 30 mg 2 tab PO TID PRN pa in #10 tabs 04/24/24 tablet famotidine 40 mg tablet 40 mg PO QDAY #30 tabs 04/24 omeprazole 40 mg capsule,delayed 40 mg PO QDAY #30 cap s 04/24/24 release metoprolol succinate 25 mg 25 mg PO BID #60 tabs 12/17 tablet,extended release 24 hr Allergies Allergy/AdvReac Type Severity Reaction Status Date / Time FISH Allergy Severe RASH AND Uncoded 12/16/24 21:59 SWELLING Review of Systems Review of Systems Systems Reviewed: All systems reviewed, normal except as documented ED Exam Narrative Physical exam: See [facility] for Dr. Pan's physical exam documentation. Course Course Course Narrative: CXR is ordered for determining the etiology of palpitations. Quality Measures none Orders Category Date Time Status EKG (ED ONLY) *Do not use* NOW Care 12/16/24 22:03 Active EKG (ED Only) Stat Exams 12/16/24 22:02 Draft Arrhythmia/Palpitations [facility] Narrative [facility] Narrative:: This section includes all my notes and documentations, including HPI, PE, and ED course. Gurvinder Pan MD HPI: 34yo female here with palpitations for several days, severely worse several hours ago. Took propranolol with no improvement. Reports binge drinking a couple days every week. Reports chest pain on and off for the past several days. No other complaints. ROS: All negative except as documented in HPI. Physical Exam: General: Alert and oriented. Appears anxious. Eyes: Conjunctivae and lids clear. ENT: No nasal congestion. Neck: Supple. Heart: RRR. Lungs: No respiratory distress. Good air movement. No rhonchi, wheezing, rales. Abdomen: Soft and nontender. Normal bowel sounds. No distension. No rebound or guarding. Back: No CVA tenderness. Skin: Warm and dry. Neuro: Alert and oriented X 3. I reviewed all diagnostic test results. My interpretation of the EKG is sinus rhythm with nonspecific ST-T changes. My interpretation of the chest x-ray is NAD. Blood tests remarkable for WBC 17.0, Mg 1.2. At this point, diagnoses include palpitations and hypomagnesemia. Treatment here included: 1. IV fluid 2. Xanax 3. Magnesium 4. Metoprolol 5. Zofran Significant improvement noted. Recommended more outpatient workup. Based on my best medical judgment, made decision no further evaluation or treatment indicated at this time. Patient understands and agrees to the discharge instructions customized and printed, see below. Discharge instructions from Dr. Pan: 1. After extensive evaluation, there is no life-threatening condition. Such as heart attack or pulmonary embolism (blood clots in your lungs) or pneumothorax (collapsed lung). 2. Take metoprolol 25 mg twice daily. You will live longer with slower heart rate and lower BP. 3. Your magnesium level was extremely low. Increase food rich in magnesium. Such as green and leafy vegetables and peanuts and almonds and cashews. 4. Stop drinking alcohol. Nothing good comes from alcohol. Alcohol causes severe and even fatal illnesses and injuries. 5. See a private doctor on 01/07 for recheck and further care. Ask to review all test results and official radiology reports, to make sure you receive all necessary follow-ups and monitoring, including repeat magnesium level. To make sure there is no serious underlying heart condition, ask to help you get more tests for your heart that cannot be done here in the ER. Such as Holter Monitor (cardiac monitoring at home from a day to even a month), heart stress test (on treadmill or with medication), echocardiogram (imaging of your heart structures), heart catherization (checking for blockages in your heart arteries), and a referral to see a Platform Beater. 6. Seek immediate medical care with worsening or with any concerns. Gurvinder Pan MD Patient data External records reviewed:: [facility] previous records (Per chart review, patient was seen here earlier today for alcohol intoxication.) Clinical information provided by:: patient Social determinants that could affect healthcare access:: alcohol use Patient has the following chronic illnesses:: HTN How is presenting disease/condition affected by chronic disease/condition?: uneffected by Evaluation data The following diagnostics were reviewed and interpreted by me:: lab results, radiology exam(s) and EKG tracing(s) (My interpretation of the EKG is: Sinus rhythm (99 bpm) with nonspecific ST-T changes. Gurvinder Pan MD) Lab and/or radiology exams considered but not ordered:: none Interpretation Summary: I reviewed all diagnostic test results. My interpretation of the EKG is sinus rhythm with nonspecific ST-T changes. My interpretation of the chest x-ray is NAD. Blood tests remarkable for WBC 17.0, Mg 1.2. Medications / Prescriptions Medications or Prescriptions considered but not ordered:: none Medication administrations:: IV fluid, Xanax, Magnesium, Metoprolol, Zofran Consultations Consultation(s) initiated? (list below): No Diagnosis Differential diagnosis arrhythmia/palpitations: palpitations, anxiety, sinus tachycardia, artial fibrillation, artial flutter, ventricular premature beats, supraventricular tachycardia, ventricular tachycardia, WPW and other (Electrolyte abnormalities) Most likely diagnosis given after review of the tests above:: Palpitations, Hypomagnesemia Admission Indicated Admission indicated?: not indicated Explain why admission is indicated or not indicated:: With significant improvement and no condition needing emergent intervention, there was no indication for admission. Admission Request Was there a request for admission?: No Disposition Plan Disposition Plan: Discharge Discharge Attestation Discharge Attestation: The patient and all family members were given an opportunity to ask questions and understood the discharge instructions. Discharge instructions specifically effects, indications for sooner follow up or return to the emergency department, and the expected course of current diagnosis. Patient condition: Stable Discharge Plan Plan Patient Disposition: HOME (Self Care) Prescriptions/Referrals Prescriptions/Med Rec: New metoprolol succinate 25 mg tablet extended release 24 hr 25 mg PO BID Qty: 60 0RF No Action propranolol 20 mg tablet 20 mg PO BID Patient Comments: TAKE 1 TABLET BY MOUTH TWICE A DAY FOR 30 DAYS famotidine 40 mg tablet 40 mg PO QDAY Qty: 30 0RF acetaminophen-codeine 300-30 mg tablet 2 tab PO TID MDD 6 PRN (Reason: pain) Qty: 10 0RF omeprazole 40 mg capsule,delayed release(DR/EC) 40 mg PO QDAY Qty: 30 0RF Referrals: Eren Glaser MD [Primary Care Provider] - In 1 week Problem List Clinical Impression: Palpitations, Hypomagnesemia Patient/Caregiver Discharge Instructions Discharge Activity: activity as tolerated Education Materials: Magnesium (Blood), ED Palpitations, ED Alcohol Abuse Additional Instructions: Discharge instructions from Dr. Pan: 1. After extensive evaluation, there is no life-threatening condition.? Such as heart attack or pulmonary embolism (blood clots in your lungs) or pneumothorax (collapsed lung). 2. Take metoprolol 25 mg twice daily. You will live longer with slower heart rate and lower BP. 3. Your magnesium level was extremely low. Increase food rich in magnesium. Such as green and leafy vegetables and peanuts and almonds and cashews. 4. Stop drinking alcohol. Nothing good comes from alcohol. Alcohol causes severe and even fatal illnesses and injuries. 5. See a private doctor on 01/07 for recheck and further care. Ask to review all test results and official radiology reports, to make sure you receive all necessary follow-ups and monitoring, including repeat magnesium level. To make sure there is no serious underlying heart condition, ask to help you get more tests for your heart that cannot be done here in the ER.? Such as Holter Monitor (cardiac monitoring at home from a day to even a month), heart stress test (on treadmill or with medication), echocardiogram (imaging of your heart structures), heart catherization (checking for blockages in your heart arteries), and a referral to see a Platform Beater. 6. Seek immediate medical care with worsening or with any concerns.?? Print Language: Wallisian Stand Alone Forms: Caitlin Award Info., Patient Portal Info Letter
--- NOTE | 2024-12-16 22:10 | XR_ITS ---
Examination: PA chest single view Technique: Upright PA chest single view Date and time: December 16, 2024 2240 hrs. Indications: Shortness of breath cardiac palpitations today. Findings: Normal heart size Lungs are clear. The osseous structures are intact Impression: No active disease
[2024-12-16 22:13] VITALS: BP 162/95; PULSE 94; RESP 18; TEMP 36.9; O2SAT 97
[2024-12-16 23:01] LABS: Basophils # (Auto) 0.1 Thou/mm3 (0.0-0.2); Basophils % (Auto) 0 % (0-2.5); Eosinophils # (Auto) 0.0 Thou/mm3 (0.0-0.5); Eosinophils % (Auto) 0 % (0-10); Hematocrit 38.4 % (36.0-46.0); Hemoglobin 13.2 g/dL (12.0-16.0); Immature Granulocytes Auto 0.07 Thou/mm3 (0.00-0.00); Lymphocytes # (Auto) 3.8 Thou/mm3 (1.0-4.8); Lymphocytes % (Auto) 22 % (10-50); Mean Corpuscular HGB Conc 34.4 g/dl (31.0-37.0); Mean Corpuscular Hemoglobin 29.6 pg (25.0-35.0); Mean Corpuscular Volume 86 fL (80-100); Monocytes # (Auto) 0.7 Thou/mm3 (0.0-0.8); Monocytes % (Auto) 4 % (0-12); Neutrophils # (Auto) 12.4 Thou/mm3 (1.8-7.7); Neutrophils % (Auto) 73 % (37-80); Nucleated Red Blood Cell # 0.00 Thou/mm3 (0.00-0.00); Nucleated Red Blood Cell % 0 /100 WBC (0); Platelet Count 322 Thou/mm3 (140-440); RDW Standard Deviation 40.6 fL (36.4-46.3); Red Blood Count 4.46 Miln/mm3 (4.00-5.20); White Blood Count 17.0 Thou/mm3 (3.6-11.0)
[2024-12-16 23:04] LABS: HCG,Qualitative Serum Negative
[2024-12-16 23:10] LABS: B-Type Natriuretic Peptide < 20 pg/mL (0-100)
[2024-12-16 23:15] LABS: Anion Gap 13 (7-16); BUN/Creatinine Ratio 14 Ratio (12-20); Blood Urea Nitrogen 10 mg/dL (9-23); Calcium 9.1 mg/dL (8.3-10.6); Carbon Dioxide 23.9 mMol/L (20.0-31.0); Chloride 101 mMol/L (98-107); Creatinine (Component) 0.7 mg/dL (0.6-1.3); D-Dimer 501 ng/mL (<600); Estimated Creatinine Clearance 106.0 mL/min (>60); Glucose 117 mg/dL (74-106); Magnesium 1.2 mg/dL (1.6-2.6); Osmolality,Calculated 275 (275-295); Potassium 3.8 mMol/L (3.4-5.1); Sodium 138 mMol/L (136-145); Thyroid Stimulating Hormone 1.12 uIU/mL (0.55-4.78); Troponin I < 0.002 ng/mL (0.0-0.045); eGFR > 60 See Note
[2024-12-17] VITALS: BP 131/92; PULSE 87; RESP 20; TEMP 37.2; O2SAT 98
[2024-12-17 00:01] VITALS: PULSE 93
[2024-12-17 00:02] VITALS: BP 131/92; PULSE 94
[2024-12-17] MEDS: METOPROLOL TARTRATE 25 MG TABLET PO (00:02)
[2024-12-17] MEDS: SODIUM CHLORIDE 0.9% 1000 ML 1,000 ML 999 ML IV (00:03)
[2024-12-17] MEDS: Magnesium Sulfate 2 GM Ivpb 2 GM/50 ML BAG IV (00:03)
[2024-12-17] MEDS: ONDANSETRON INJ 2 MG/ML INJ 2 ML 4 MG IVP (00:04)
[2024-12-17 01:26] VITALS: BP 129/87; PULSE 82; RESP 17; TEMP 37.1; O2SAT 97
[2024-12-17 01:33] LABS: Alcohol, Blood Medical < 3.0 mg/dL (0-10.0)
== END 2024-12-17 02:02 | disposition home or self-care (01) ==
PROVIDERS: Emergency Provider Emergency Medicine; PCP Family Medicine
DX: E83.42 Hypomagnesemia (principal); R00.2 Palpitations; R06.02 Shortness of breath; R00.0 Tachycardia, unspecified; I49.3 Ventricular premature depolarization; I10 Essential (primary) hypertension
CPT/HCPCS: 36415; 71045; 80048; 80320; 83735; 83880; 84443; 84484; 84703; 85025; 85379; 93005; 96361; 96374; 99283; J2405; J3475; J7030; A9270; G0480

== ENCOUNTER 2024-12-26 15:13 | Observation (INO) | payer MEDICAID, SELFPAY ==
[2024-12-26] VITALS (9 sets, daily range): BP systolic 104–179; BP diastolic 64–135; PULSE 73–108; RESP 18–19; TEMP 36.8–37.2; O2SAT 95–98; BMI 33.9
--- NOTE | 2024-12-26 15:23 | PD.EDNEURO ---
Neuro Symptoms Deficit-RME/HPI General Chief Complaint: Neuro Symptoms/Deficit Stated Complaint: CONFUSION, SOB, TINGLING RIGHT SIDE, CORCORAN, Time Seen by Provider: 12/26/24 15:25 Arrival date/time: 12/26/24 15:13 Limitations: no limitations RME / HPI RME / HPI Narrative: 34 year old female with history of hypertension presents to the ED for evaluation of neurological symptoms beginning at approximately 2:15 PM today, while at the grocery store. States she had sudden onset headache, confusion, expressive aphasia, unsteady gait, and right-sided tingling. Reported feeling as though she was leaning to the right while walking and asked her mother to drive her to the ED. Denies any prior episodes of similar symptoms or stroke. Denies any fever, chills, visual changes, or loss of movement. Related Data Home Medications ?Medication ?Instructions ?Recorded ?Confirmed propranolol 20 mg tablet 20 mg PO BID 04/24/24 04/24/24 Previous Rx's ?Medication ?Instructions ?Recorded acetaminophen 300 mg-codeine 30 mg 2 tab PO TID PRN pain #10 tabs 04/24/24 tablet famotidine 40 mg tablet 40 mg PO QDAY #30 tabs 04/24/24 omeprazole 40 mg capsule,delayed 40 mg PO QDAY #30 caps 04/24/24 release metoprolol succinate 25 mg 25 mg PO BID #60 tabs 12/17/24 tablet,extended release 24 hr Allergies Allergy/AdvReac Type Severity Reaction Status Date / Time FISH Allergy Severe RASH AND Uncoded 12/16/24 21:59 SWELLING Review of Systems Review of Systems Systems Reviewed: All systems reviewed, normal except as documented Past Medical History Past Medical History CARDIAC: Positive Cardiac Arrhythmia (Tachycardia) and Hypotension GASTROINTESTINAL: Positive Gastrointestinal Disorders and Gall Bladder Disease PSYCHO/SOCIAL: Positive Anxiety Family History FAMILY HISTORY: Negative Family Psychiatric Problems, Family Respiratory Disorders, Family Cardiac Disorders, Family Gastrointestinal Problems, Family Cancer, Family Surgery or Family Anesthesia Reaction Surgical History SURGICAL: Negative Neurologic Surgery, Mastectomy, Lumpectomy, Hysterectomy, Tubal Ligation, Section or Vasectomy Social History SMOKING STATUS: Current every day smoker SECOND HAND EXPOSURE: No SUBSTANCE USE: does not use ED Exam General Limitations: Present no limitations General appearance: Present alert Head Head exam: Present atraumatic, normocephalic and normal inspection Eye Eye exam: Present normal appearance, PERRL and EOMI ENT ENT exam: Present normal exam, normal oropharynx and mucous membranes moist Neck Neck exam: Present normal inspection, full ROM and trachea midline Chest Chest inspection: Present normal inspection and symmetric chest wall rise Respiratory Respiratory exam: Present normal lung sounds bilaterally Cardiovascular Cardiovascular exam: Present regular rate, normal rhythm and normal heart sounds Abdominal Exam Abdominal exam: Present soft and normal bowel sounds Extremities Exam Extremities exam: Present normal inspection and full ROM Back Exam Back exam: Present normal inspection and full ROM Neurological Exam Neurological exam: Present alert, oriented X3, CN II-XII intact and other (difficulty with speech, unsteady gait, right upper and lower extremity sensory deficit ) Psychiatric Psychiatric exam: Present normal affect and normal mood Skin Skin exam: Present warm, dry, intact and normal color Course Quality Measures Suspected type of Stroke: Non Acute Last known well (date): 12/26/24 Last known well (time): 14:15 Tenecteplase given: Reason(s) TPA not given: Acute bleeding diathesis (pt reports blood in stool) not given stroke Orders Category Date Time Status Bedside Blood Glucose NOW Care 12/26/24 15:25 Active COVID-19 Screening Questionnaire NOW Care 12/26/24 16:41 Active Biometrics Consultant NOW Care 12/26/24 15:25 Active Continuous Pulse Oximetry NOW Care 12/26/24 15:25 Completed Decision to Admit X1 Care 12/26/24 16:41 Active Insert IV NOW Care 12/26/24 15:25 Active NIH Stroke Scale now Care 12/26/24 15:25 Active NPO NOW Care 12/26/24 15:25 Active Neuro Check Q15MIN Care 12/26/24 15:25 Active Nurse Swallow Screen x1 Care 12/26/24 15:25 Active Consult to Neurology / Tele-Neurology Routine Cons 12/26/24 15:[address] angio stroke protocol Stat Exams 12/26/24 15:[address] stroke protocol Stat Exams 12/26/24 15:25 Completed US gall bladder Stat Exams 12/26/24 17:43 Completed Alcohol, Blood Medical Stat Lab 12/26/24 15:22 Completed B-Type Natriuretic Peptide Stat Lab 12/26/24 15:22 Completed CBC Stat Lab 12/26/24 15:22 Completed Comprehensive Metabolic Panel Stat Lab 12/26/24 15:22 Completed Drug Screen,Urine Stat Lab 12/26/24 17:30 Completed Magnesium Stat Lab 12/26/24 15:22 Completed Partial Thromboplastin Time Stat Lab 12/26/24 15:22 Completed Prothrombin Time with INR Stat Lab 12/26/24 15:22 Completed Troponin I Stat Lab 12/26/24 15:22 Completed Urinalysis Stat Lab 12/26/24 17:30 Completed Urine Culture Stat Lab 12/26/24 17:30 Received ALPRazoLAM [Xanax] Med 12/26/24 16:53 Discontinued 0.25 mg PO X1 ONE Aspirin Med 12/26/24 16:40 Discontinued 325 mg PO X1 ONE Clopidogrel [Plavix] Med 12/26/24 16:40 Discontinued 300 mg PO X1 ONE Potassium Chloride [K-Dur] Med 12/26/24 16:58 Discontinued 40 meq PO X1 ONE Sodium Chloride 0.9% 1000 ml [Ns] 1,000 ml Med 12/26/24 15:30 Active IV Q10H Vital Signs Vital signs: Vital Signs Temperature 98.5 F 12/26/24 15:25 Pulse Rate 108 H 12/26/24 15:25 Respiratory Rate 18 12/26/24 15:25 Blood Pressure 179/135 H 12/26/24 15:25 Pulse Oximetry (%) 96 12/26/24 15:25 Oxygen Delivery Method Room Air 12/26/24 15:25 Pulse ox is % on room air which is adequate. Neuro Symptoms / Deficit MDM Narrative MDM Narrative:: Tia Baltazar am scribing for and in the presence of Dr. Damon. Patient data External records reviewed:: [facility] previous records (I reviewed ED visit on 12/16/2024 ) Clinical information provided by:: patient Social determinants that could affect healthcare access:: mental health (anxiety?) Patient has the following chronic illnesses:: Hypertension How is presenting disease/condition affected by chronic disease/condition?: exacerbated by Evaluation data The following diagnostics were reviewed and interpreted by me:: lab results and radiology exam(s) Lab and/or radiology exams considered but not ordered:: None Interpretation Summary: Ordering Physician: Prashanth Damon MD Date of Service: 12/26/24 Procedure(s): CT stroke protocol Accession Number(s): [id number] cc: Prashanth Damon MD; Cory De Luna MD~ Examination: CT brain head without contrast. 2-D sagittal coronal reconstructions Date and time of exam:December 26, 2024, 1532 hours INDICATIONS: Stroke alert, onset focal neurologic deficit today CTDI: vol (mGy):53 DLP: (mGycm):1061 Technique: Multiple CT axial sections of the brain have been obtained, 5 mm slice thickness. Contrast has not been administered. 2-D sagittal, coronal reconstructions have been obtained Low dose protocols were performed. One or more of the following dose reduction techniques were used; automated exposure control, adjustment of the mA and/or KV according to patient size, use of iterative reconstruction technique. Findings: No significant ventricular enlargement. Intra-axial or extra-axial hemorrhage density is not seen. No mass effect or midline shift Basal cisterns are not remarkable. Fourth ventricle is midline. Cranial vault intact. Impression: Negative for acute hemorrhage, mass effect or midline shift Dictated By: Cory De Luna MD Signed By: <Electronically signed by Cory De Luna MD in OV> 12/26/24 1535 Ordering Physician: Prashanth Damon MD Date of Service: 12/26/24 Procedure(s): CT angio stroke protocol Accession Number(s): [id number] cc: Prashanth Damon MD; Cory De Luna MD; NO PRIMARY/FAMILY,PHYSICIAN~ Examination: CTA carotids with intravenous contrast CTA brain, head with intravenous contrast. 2-D sagittal, coronal reconstructions. 3-D reconstructions. Exam date and time: December 26, 2024, 1552 hours INDICATIONS: Stroke alert, onset right-sided body weakness numbness focal neurologic deficits today CTDI: vol (mGy) 11.5 DLP: (mGycm) 417 Technique: Multiple CTA axial brain, head carotid images post intravenous contrast injection 75 cc, [id number]. 2-D sagittal, coronal reconstructions. 3-D reconstructions, 3-D post processing including vascular maximum intensity projection images. Low dose protocols were performed. One or more of the following dose reduction techniques were used; automated exposure control, adjustment of the mA and/or KV according to patient size, use of iterative reconstruction technique. Findings: No common carotid carotid bifurcation or internal carotid artery significant stenoses Mildly dominant left vertebral artery in the neck with no significant stenoses No cerebral large vessel arterial occlusions thrombus dissection or cerebral aneurysm IMPRESSION: No significant neck arterial stenoses No cerebral large vessel arterial occlusions or thrombus Dictated By: Cory De Luna MD Signed By: <Electronically signed by Cory De Luna MD in OV> 12/26/24 1618 Medications / Prescriptions Medications or Prescriptions considered but not ordered:: None Medication administrations:: Medication Administration History Sodium Chloride (Ns) 1,000 mls @ 100 mls/hr IV Q10H MELVIN Stop: 01/25/25 15:29 Last Admin: 12/26/24 16:11 Dose: 100 mls/hr Documented By: VL Discontinued Medications Alprazolam (Alprazolam 0.25 Mg Tablet) 0.25 mg PO X1 ONE Stop: 12/26/24 16:54 Last Admin: 12/26/24 17:06 Dose: 0.25 mg Documented By: VL Aspirin (Aspirin 325 Mg Tablet) 325 mg PO X1 ONE Stop: 12/26/24 16:41 Last Admin: 12/26/24 16:48 Dose: 325 mg Documented By: VL Clopidogrel Bisulfate (Clopidogrel Bisulfate 75 Mg Tablet) 300 mg PO X1 ONE Stop: 12/26/24 16:41 Last Admin: 12/26/24 16:48 Dose: 300 mg Documented By: VL Potassium Chloride (Potassium Chloride 20 Meq Tabcr) 40 meq PO X1 ONE Stop: 12/26/24 16:59 Last Admin: 12/26/24 17:06 Dose: 40 meq Documented By: VL See above Consultations Consultation(s) initiated? (list below): Yes Consultation #1 (Physician, Specialty, Details): I spoke with teleneurologist Dr. Graham. States TNK was recommended however patient reported bloody stools. Advised admission for stroke work-up, Aspirin, Plavix. Time: 16:08 Consultation #2 (Physician, Specialty, Details): I spoke with hospitalist team B regarding admission. Time: 16:45 Diagnosis Neuro Differential Diagnosis: subarachnoid hemorrhage, cerebrovascular accident and transient cerebral ischemia Most likely diagnosis given after review of the tests above:: Acute CVA Anxiety Admission Indicated Admission indicated?: not indicated Admission Request Was there a request for admission?: No Disposition Plan Disposition Plan: Admit Critical Care Time Critical Care Time Critical Care Time: Yes Total Critical Care Time (min.): 35 Attestation: The high probability of sudden, clinically significant deterioration in the patient's condition required the highest level of my preparedness to intervene urgently. The services I provided to this patient were to treat and/or prevent clinically significant deterioration. Services included the following: chart data review, reviewing nursing notes and/or old charts, documentation time, siebel consultant collaboration regarding findings and treatment options, medication orders and management, direct patient care, vital sign assessments and ordering, interpreting and reviewing diagnostic studies and lab tests. Aggregate critical care time includes only time during which I was engaged in work directly related to the patient's care, as described above, whether at bedside or elsewhere in the Emergency Department. It did not include time spent performing other reported procedures or the services of residents, students, nurses or physician assistants. Discharge Plan Plan Patient Disposition: Admit Acute Care w/in Hospital Prescriptions/Referrals Prescriptions/Med Rec: No Action propranolol 20 mg tablet 20 mg PO BID Patient Comments: TAKE 1 TABLET BY MOUTH TWICE A DAY FOR 30 DAYS famotidine 40 mg tablet 40 mg PO QDAY Qty: 30 0RF acetaminophen-codeine 300-30 mg tablet 2 tab PO TID MDD 6 PRN (Reason: pain) Qty: 10 0RF omeprazole 40 mg capsule,delayed release(DR/EC) 40 mg PO QDAY Qty: 30 0RF metoprolol succinate 25 mg tablet extended release 24 hr 25 mg PO BID Qty: 60 0RF Referrals: No Primary/Family,Physician [Primary Care Provider] - In 1 week Problem List Clinical Impression: Acute cerebrovascular accident (CVA) Patient/Caregiver Discharge Instructions Print Language: Moroccan Stand Alone Forms: Caitlin Award Info., Patient Portal Info Letter
[2024-12-26 15:35] LABS: Basophils # (Auto) 0.0 Thou/mm3 (0.0-0.2); Basophils % (Auto) 0 % (0-2.5); Eosinophils # (Auto) 0.1 Thou/mm3 (0.0-0.5); Eosinophils % (Auto) 1 % (0-10); Hematocrit 37.7 % (36.0-46.0); Hemoglobin 13.1 g/dL (12.0-16.0); Immature Granulocytes Auto 0.03 Thou/mm3 (0.00-0.00); Lymphocytes # (Auto) 2.3 Thou/mm3 (1.0-4.8); Lymphocytes % (Auto) 22 % (10-50); Mean Corpuscular HGB Conc 34.7 g/dl (31.0-37.0); Mean Corpuscular Hemoglobin 29.8 pg (25.0-35.0); Mean Corpuscular Volume 86 fL (80-100); Monocytes # (Auto) 0.7 Thou/mm3 (0.0-0.8); Monocytes % (Auto) 7 % (0-12); Neutrophils # (Auto) 7.3 Thou/mm3 (1.8-7.7); Neutrophils % (Auto) 70 % (37-80); Nucleated Red Blood Cell # 0.00 Thou/mm3 (0.00-0.00); Nucleated Red Blood Cell % 0 /100 WBC (0); Platelet Count 187 Thou/mm3 (140-440); RDW Standard Deviation 43.0 fL (36.4-46.3); Red Blood Count 4.39 Miln/mm3 (4.00-5.20); White Blood Count 10.5 Thou/mm3 (3.6-11.0)
[2024-12-26 15:52] LABS: INR 1.1 (0.9-1.3); Partial Thromboplastin Time 25.5 Seconds (22.0-36.0); Prothrombin Time 12.1 Seconds (9.0-12.2)
[2024-12-26 15:54] LABS: B-Type Natriuretic Peptide < 20 pg/mL (0-100)
[2024-12-26] MEDS: SODIUM CHLORIDE 0.9% 1000 ML 1,000 ML 100 ML IV (16:11)
--- NOTE | 2024-12-26 16:11 | ESCONSULT_ITS ---
Tele Neuro Consultation Consultation Date 12/26/24 Most Recent Vital Signs Last Vital Signs Temp 98.5 F 12/26/24 15:25 Pulse 87 12/26/24 15:45 Resp 18 12/26/24 15:25 BP 179/135 H 12/26/24 15:25 Pulse Ox 96 12/26/24 15:25 O2 Del Method Room Air 12/26/24 15:25 Laboratory-Coagulation Panel PT 12.1 Seconds (9.0-12.2) 12/26/24 15:22 INR 1.1 (0.9-1.3) 12/26/24 15:22 APTT 25.5 Seconds (22.0-36.0) 12/26/24 15:22 Consultation Narrative [facility] Patient Name:???Julissa Benito Date of :???1990 Identification Number:??? Date of Service:???12/26/2024 15:21:23 Diagnosis:?R29.810 - Facial numbness/ Facial weakness Impression: ?Patient is a 34-year-old history significant for hypertension is being evaluated for concerns of right-sided numbness and speech changes. ? ?Patient mentions that at around 2:30 PM she was shopping in a store. Everything was seemingly normal. Suddenly she felt like passing out and she noticed that the right side of her face and her body started becoming numb. She was trying to talk and she could not get her words out. Mentions that she does not have a headache. This has never happened in the past. She also states that she has some blood in her stool. She noticed it today morning. It has happened earlier. Unclear what workup was done. ?Denies any history of complex migraines. Denies any history of migraines or seizures. Endorses a slight headache. ? ?On exam patient is awake, alert, extraocular motion is intact, face is symmetric. Mild right upper extremity weakness more distally than proximally. She is able to pretend like she is eating with a fork, signing a check, combing her hair brushing her teeth with her right hand. Fine finger movements seem to be intact as the left side. She is able to hold up her right lower extremity for 5 seconds without any drift. When she walks there is some mild right lower extremity weakness which becomes apparent. Language function seems to be intact she is able to name common objects, comprehend, repeat without any difficulty. ? ?Head CT appears unremarkable with no clear intracranial hemorrhage or large territorial infarct. ? ?Have to rule out an acute ischemic event involving the left frontal lobe. Other possibilities include focal seizures, complex migraines. ?History of recent blood in stool noticed this morning by the patient, precludes IV thrombolytic treatment. ?Can load with aspirin 325, Plavix 300 mg. ?Allow permissive hypertension up to a systolic of 220. ?Please obtain MRI brain with and without contrast. ?If MRI Brain is negative, may need EEG. Our recommendations are outlined below. Recommendations: ? Bedside Swallow Eval ? DVT Prophylaxis ? IV Fluids, Normal Saline ? Head of Bed 30 Degrees ? Euglycemia and Avoid Hyperthermia (PRN Acetaminophen) ?Have to rule out an acute ischemic event involving the left frontal lobe. Other possibilities include focal seizures, complex migraines. ?History of recent blood in stool noticed this morning by the patient, precludes IV thrombolytic treatment. ?Can load with aspirin 325, Plavix 300 mg. ?Allow permissive hypertension up to a systolic of 220. ?Please obtain MRI brain with and without contrast. ?If MRI Brain is negative, may need EEG. Advanced Imaging:Advanced imaging has been ordered. Results pending. Metrics: Last Known Well: 12/26/2024 15:41:02 Dispatch Time: 12/26/2024 15:21:23 Arrival Time: 12/26/2024 15:21:37 Initial Response Time: 12/26/2024 15:22:09Symptoms: Numbness and tingling on R side. Initial patient interaction: 12/26/2024 15:33:59 NIHSS Assessment Completed: 12/26/2024 15:42:59Patient is not a candidate for Thrombolytic. Thrombolytic Medical Decision: 12/26/2024 15:47:26Patient was not deemed candidate for Thrombolytic because of following reasons: Recent gastrointestinal or urinary tract hemorrhage (within previous 21 days) . CT Head: CT head unremarkable for acute infarction or hemorrhage per Radiology: report reviewed Primary Provider Notified of Diagnostic Impression and Management Plan on: 12/26/2024 16:08:59 History of Present Illness:Patient is a 34 year old Female. Patient was brought by private transportation with symptoms of Numbness and tingling on R side. Patient is a 34-year-old history significant for hypertension is being evaluated for concerns of right-sided numbness and speech changes. Patient mentions that at around 2:30 PM she was shopping in a store. Everything was seemingly normal. Suddenly she felt like passing out and she noticed that the right side of her face and her body started becoming numb. She was trying to talk and she could not get her words out. Mentions that she does not have a headache. This has never happened in the past. She also states that she has some blood in her stool. She noticed it today morning. It has happened earlier. Unclear what workup was done. ? Past Medical History: ?Hypertension ?There is no history of Diabetes Mellitus ?There is no history of Hyperlipidemia ?There is no history of Coronary Artery Disease Medications: No Anticoagulant use? No Antiplatelet use Reviewed EMR for current medications Allergies:? Description:?As per chart Social History: Smoking: No Alcohol Use: Yes Family History: There is no family history of premature cerebrovascular disease pertinent to this consultation ROS : 14 Points Review of Systems was performed and was negative except mentioned in HPI. Past Surgical History: There Is No Surgical History Contributory To Today?s Visit ? Examination: BP(179/115),?Pulse(100),?Blood Glucose(126) 1A: Level of Consciousness - Alert; keenly responsive?+ 0 1B: Ask Month and Age - Both Questions Right?+ 0 1C: Blink Eyes & Squeeze Hands - Performs Both Tasks?+ 0 2: Test Horizontal Extraocular Movements - Normal?+ 0 3: Test Visual Noguera - No Visual Loss?+ 0 4: Test Facial Palsy (Use Grimace if Obtunded) - Normal symmetry?+ 0 5A: Test Left Arm Motor Drift - No Drift for 10 Seconds?+ 0 5B: Test Right Arm Motor Drift - Drift, but doesn't hit bed?+ 1 6A: Test Left Leg Motor Drift - No Drift for 5 Seconds?+ 0 6B: Test Right Leg Motor Drift - No Drift for 5 Seconds?+ 0 7: Test Limb Ataxia (FNF/Heel-Smallwood) - No Ataxia?+ 0 8: Test Sensation - Mild-Moderate Loss: Less Sharp/More Dull?+ 1 9: Test Language/Aphasia - Normal; No aphasia?+ 0 10: Test Dysarthria - Normal?+ 0 11: Test Extinction/Inattention - No abnormality?+ 0 NIHSS Score:?2 Pre-Morbid Modified Jada Scale: 1 Points = No significant disability despite symptoms; able to carry out all usual duties and activities Spoke with :?ED Provider This consult was conducted in real time using interactive audio and video technology. Patient was informed of the technology being used for this visit and agreed to proceed. Patient located in hospital and provider located at home/office setting. Patient is being evaluated for possible acute neurologic impairment and high probability of imminent or life-threatening deterioration. I spent total of 45 minutes providing care to this patient, including time for face to face visit via telemedicine, review of medical records, imaging studies and discussion of findings with providers, the patient and/or family. Dr Morro Graham [facility] For Inpatient follow-up with [facility] physician please call [facility] at . As we are not an outpatient service for any post hospital discharge needs please contact the hospital for assistance. If you have any questions for the [facility] physicians or need to reconsult for clinical or diagnostic changes please contact us via [facility] at [phone]. Signature :?Morro Graham ?
[2024-12-26 16:13] LABS: Alanine Aminotransferase 47 U/L (10-49); Albumin, Serum 4.9 gm/dL (3.5-5.0); Albumin/Globulin Ratio 1.6 (1.2-2.2); Alcohol, Blood Medical < 3.0 mg/dL (0-10.0); Alkaline Phosphatase 102 U/L (46-116); Anion Gap 15 (7-16); Aspartate Amino Transferase 55 U/L (0-34); BUN/Creatinine Ratio 13 Ratio (12-20); Bilirubin,Total 2.9 mg/dL (0.3-1.2); Blood Urea Nitrogen 8 mg/dL (9-23); Calcium 9.1 mg/dL (8.3-10.6); Calcium (Corrected) 9.1 mg/dL (8.5-10.1); Carbon Dioxide 20.5 mMol/L (20.0-31.0); Chloride 102 mMol/L (98-107); Creatinine (Component) 0.6 mg/dL (0.6-1.3); Globulin 3.1 gm/dL (2.3-3.5); Glucose 117 mg/dL (74-106); Magnesium 1.4 mg/dL (1.6-2.6); Osmolality,Calculated 273 (275-295); Potassium 3.0 mMol/L (3.4-5.1); Sodium 137 mMol/L (136-145); Total Protein 8.0 gm/dL (5.7-8.2); Troponin I < 0.002 ng/mL (0.0-0.045); eGFR > 60 See Note
[2024-12-26] MEDS: CLOPIDOGREL BISULFATE 75 MG TABLET 300 MG PO (16:48)
--- NOTE | 2024-12-26 17:43 | XR_ITS ---
Examination: Abdomen sonogram, Limited Date and time of exam: December 26, 2024, 1934 hrs. Indications: Right upper abdominal pain beginning 2 months ago Technique: Real-time lujan scale transabdominal sonographic images of the upper abdomen obtained. Findings: Absent gallbladder Common bile duct 0.6 cm no stones Pancreas obscured by bowel gas Liver 16.1 cm no liver lesions Normal hepatopedal portal venous flow Patent IVC Impression: Absent gallbladder No common bile duct stones Mild hepatomegaly
--- NOTE | 2024-12-26 18:07 | PD.EVENT ---
Documentation for date of: 12/26/24 Event Note Event Note: Patient is a 34 years old female with past medical history of hypertension, alcohol abuse who presented to the ED with complaint of right-sided numbness, vision change and speech change. As per the patient, this afternoon while shopping, she noticed sudden right-sided numbness including her face upper and lower extremity, she also felt tingling sensation, started having trouble with vision and decided to visit the ED. Denies any fall, headache, weakness of the limbs. Patient also mentioned that bedside and has been in lots of stress. She used to drink pretty regularly until 4 days ago when she stopped suddenly. Denies any withdrawal symptoms. On exam, she is alert and oriented, able to answer questions and follow commands appropriately. Has numbness over right upper and lower extremity, No facial asymmetry, still complains of blurriness of vision if focused on single object for long period of time. Did not notice any weakness on her extremities. As per ED, had imbalance while trying to ambulate. Stroke alert was called, teleneuro was consulted, patient underwent CT head and CTA head/neck, which were negative for acute hemorrhage, mass effect or midline shift, no cerebral large vessel arterial occlusion or thrombus, no significant neck arterial stenosis. Teleneurology recommended admission for further stroke workup including brain MRI and possible EEG if negative. Vitals are stable except for hypertension. Lab results show hypokalemia, hypomagnesemia, elevated bilirubin of 2.9 and AST 55. On further inquiring, patient has 2 biliary stent placed, recommended to obtain abdominal imaging to rule out stent dysfunction or CBD obstruction before admission. Ilana Orr MD
[2024-12-26 18:16] LABS: Collection Type, Urine Catheter
[2024-12-26 18:31] LABS: Bilirubin,Urine Negative (Negative); Blood,Urine 2+ (Negative); Clarity,Urine Clear (Clear/Hazy); Color,Urine Yellow (Lt Yel-Yel); Glucose, Urine Negative (Negative); Ketones,Urine Negative (Negative); Leukocyte Esterase,Urine Positive (Negative); Nitrite,Urine Negative (Negative); PH,Urine 6.5 (5.0-7.0); Protein,Urine Negative (Neg - Trace); RBC,Urine 6 /hpf (0-3); Squamous Epithelial Cell,Urine 8 /hpf (0-5); Urobilinogen,Urine 6.0 mg/dL (0.0-1.0); WBC,Urine 3 /hpf (0-5)
[2024-12-26 18:32] LABS: Amphetamine/Methamp Scrn,U Negative (Negative); Barbiturate Screen,Urine Negative (Negative); Benzodiazepines Screen,Urine Negative (Negative); Benzoylecgonine Screen, Ur Negative (Negative); Fentanyl Screen,Urine Negative (Negative); Opiate Screen,Urine Negative (Negative); THC Screen,Urine Negative (Negative)
[2024-12-26 18:41] LABS: Specific Gravity,Urine < 1.010 (1.001-1.035)
--- NOTE | 2024-12-26 22:02 | ESHP_ITS ---
<Statement entered by Aaron Blanco MD - 12/27/24 12:19> I have discussed and was present for the essential components of the history, physical examination, diagnosis, and treatment plan with the resident. I agree with the patient's care as documented by the resident and amended herein by me. Aaron Blanco MD FACP. Documentation for date of: 12/26/24 HPI History of Present Illness History of present illness: Julissa is a 34-year-old female with a past medical history of anxiety, hypertension, and GERD who comes in for an evaluation of right sided upper and lower extremity weakness, trouble with speech, double vision and trouble with gait. Patient reports that she has never had the symptoms before and this had occurred while being at the store with her mom. She reports that she did not pass out or fall, however felt like she was having trouble moving. She also reports that she was having trouble with speech and was having trouble seeing words. She denies any recent sick contacts, or recent travel. She has never had a seizure before. She did report a headache at the time which is rated 5 out of 10, right sided. Denies a history of migraines. She did not lose her vision. She does admit to having palpitations at that time. She does not have a vocational placement specialist, and sees [facility] for PCP. She does endorse a history of cholecystectomy in which she had to get biliary stents for a leak in the past. Last drink was 4 days ago. ED course: Patient arrived to the ED with a temperature of 98.5, heart rate of 108, respiratory rate 18, blood pressure 179/135, saturating 96% on room air. Patient was worked up was found to have a white blood cell count of 10.5, hemoglobin 13, sodium 137, potassium 3, chloride 102, bicarb 21, creatinine 0.6, glucose 117, magnesium 1.4, T. bili 2.9, AST 55, ALT 47, ALP 102, troponin negative x 1. Head CT was done and did not show any acute hemorrhage, mass effect or midline shift. Head neck CTA was done which showed no large vessel occlusion. Teleneuro was consulted which obtained an NIHSS score of 2, and recommend admission with loading aspirin and Plavix in addition to further workup and MRI. Medicine was consulted and patient admitted to the floors. PMHx: As above Surgeries: Cholecystectomy with biliary stents Meds: Propranolol, pending med rec Allergies: Fish Family Hx: Denies any family history of heart disease, seizures, stroke or kidney disease. Social Hx: Lives in [place], currently single, has 3 kids, lives with her sister. Says that she smokes about 1 pack a week of cigarettes for the past 10 years. She says she drinks about 7 beers a week and drinks occasionally socially. Denies any history of oral or IV drug use. Review of Systems Review of Systems Narrative Review of Systems: 12 point ROS was reviewed and otherwise negative was stated directly in the HPI. Exam Vital Signs Temp Pulse Resp BP Pulse Ox O2 Del Method 98.2 F 88 19 116/66 98 Room Air 12/26/24 20:20 12/26/24 21:00 12/26/24 21:00 12/26/24 21:00 12/26/24 21:00 12/26/24 20:20 Narrative Exam General: AAOx3, NAD, obese female HEENT: Moist mucous membranes, conjunctiva clear, EOMI, PERRLA, Cardiovascular: S1, S2, radial pulses +2 bilat, RRR Pulmonary: CTAB bilat no cough, no wheezing GI: No tenderness to light or deep palpitation, no guarding, rigidity, rebound tenderness or distension, umbilical hernia Extremities: No presence of trace or pitting edema in lower extremities bilaterally, dorsalis pedis pulses +2 bilaterally Neuro: AAOx3, no focal motor or sensory deficits in the UE or LE bilat Psych: Cooperative, however a bit anxious, may be withdrawing Results: Labs 12/26/24 15:22 12/26/24 15:22 Labs: Short CBC 12/26/24 Range/Units 15:22 WBC 10.5 (3.6-11.0) Thou/mm3 Hgb 13.1 (12.0-16.0) g/dL Hct 37.7 (36.0-46.0) % Plt Count 187 D (140-440) Thou/mm3 BMP 12/26/24 15:22 Sodium 137 Potassium 3.0 L Chloride 102 Carbon Dioxide 20.5 BUN 8 L Creatinine 0.6 Glucose 117 H Calcium 9.1 Cardiac Enzymes 12/26/24 Range/Units 15:22 Troponin I < 0.002 (0.0-0.045) ng/mL Liver Function 12/26/24 Range/Units 15:22 Total Bilirubin 2.9 H (0.3-1.2) mg/dL AST 55 H (0-34) U/L ALT 47 (10-49) U/L Alkaline Phosphatase 102 (46-116) U/L Albumin 4.9 (3.5-5.0) gm/dL Urine 12/26/24 Range/Units 17:30 Urine Color Yellow (Lt Yel-Yel) Urine Clarity Clear (Clear/Hazy) Urine pH 6.5 (5.0-7.0) Ur Specific [place] < 1.010 (1.001-1.035) Urine Protein Negative (Neg - Trace) Urine Glucose (UA) Negative (Negative) Quality Measures Quality Measures stroke Suspected type of Stroke: Non Acute Last known well (date): 12/26/24 Last known well (time): 14:15 Tenecteplase given: Reason(s) Tenecteplase not given: Acute bleeding diathesis (pt reports blood in stool) not given Rehab services: PT evaluation ordered and Speech Language Pathology eval ordered VTE Prophylaxis: mechanical Antithrombotic by day 2:: not indicated (describe) Statin ordered: >75 y/o moderate or high intensity dose Anticoagulation ordered for A-fib or flutter (current or hx): not indicated Medications Home Medications and Allergies Home Medications ?Medication ?Instructions ?Recorded ?Confirmed ?Type propranolol 20 mg tablet 20 mg PO BID 04/24/24 History Allergies Allergy/AdvReac Type Severity Reaction Status Date / Time FISH Allergy Severe RASH AND Uncoded 12/16/24 21:59 SWELLING Visit Medications Acetaminophen (Acetaminophen 325 Mg Tablet) 650 mg PO Q6H PRN PRN Reason: Fever >100 or pain 1-3 Stop: 01/25/25 21:56 Hydrocodone Bitart/Acetaminophen (Hydrocodone/Apap 5/325 Tablet) 1 tab PO Q4HR PRN PRN Reason: PAIN SCALE 4-6 (Moderate Stop: 12/31/24 21:56 Atorvastatin Calcium (Atorvastatin Calcium 20 Mg Tablet) 40 mg PO HS MELVIN Stop: 01/25/25 21:59 Sodium Chloride (Ns) 1,000 mls @ 100 mls/hr IV Q10H MELVIN Stop: 01/25/25 15:29 Last Admin: 12/26/24 16:11 Dose: 100 mls/hr Ondansetron HCl (Ondansetron Inj 2 Mg/Ml Inj 2 Ml) 4 mg IVP Q6H PRN; Protocol PRN Reason: NAUSEA OR VOMITING Stop: 01/25/25 21:56 Pantoprazole Sodium (Pantoprazole 40 Mg Tablet) 40 mg PO QDAY MELVIN Stop: 01/26/25 08:59 Discontinued Medications Alprazolam (Alprazolam 0.25 Mg Tablet) 0.25 mg PO X1 ONE Stop: 12/26/24 16:54 Last Admin: 12/26/24 17:06 Dose: 0.25 mg Aspirin (Aspirin 325 Mg Tablet) 325 mg PO X1 ONE Stop: 12/26/24 16:41 Last Admin: 12/26/24 16:48 Dose: 325 mg Clopidogrel Bisulfate (Clopidogrel Bisulfate 75 Mg Tablet) 300 mg PO X1 ONE Stop: 12/26/24 16:41 Last Admin: 12/26/24 16:48 Dose: 300 mg Potassium Chloride (Potassium Chloride 20 Meq Tabcr) 40 meq PO X1 ONE Stop: 12/26/24 16:59 Last Admin: 12/26/24 17:06 Dose: 40 meq Assessment & Plan Plan Assessment Julissa is a 34-year-old female with a past medical history of anxiety, hypertension, and GERD who is currently admitted for stroke rule out. #Acute CVA rule out #Generalized weakness Patient does not seem to have focal symptoms, they seem to be general Considering patient had symptoms in upper, lower extremity, and symptoms resolved at this point, patient could have other reasons for weakness Will continue with workup of stroke, however in the setting of electrolyte disturbances, this could have present the patient this way Patient also may be withdrawing from alcohol, having seizure or having complex migraine UDS negative Head CT and head neck CTA unremarkable Low suspicion for CVA at this time Plan: ? Neurology consulted, appreciate recs ? MR stroke protocol ? Speech therapy ? Physical therapy ? Orthostatic vitals ? Seizure precautions ? Echo ? Neurochecks every 4 hours ? Head of bed elevation 30 degrees ? Bedrest ? Cardiac stratification ? Lipitor 40 mg at bedtime ? Loaded with aspirin and Plavix #Hypokalemia #Hypomagnesemia #Electrolyte disturbances Plan: ? Trend with CMP and lytes ? Replete as needed #History of alcohol intoxication Current blood alcohol level of 3 Patient was recently in the ER for alcohol intoxication Patient did present tachycardic and seems a bit anxious at this time, would likely benefit from CIWA protocol Plan: ? CIWA protocol #Hyperbilirubinemia #History of biliary leak status post biliary stents #Elevated transaminases Gallbladder ultrasound unremarkable for CBD dilatation, shows absent gallbladder ALP negative, AST slightly elevated Plan: ? Trend with CMP #Asymptomatic bacteriuria Plan: ? Treat if patient becomes symptomatic #Hematuria +2 blood, RBCs 6 Blood seen on previous urinalyses in 2024 RBCs seen as early as 2022 Patient could have underlying kidney disease such as IgA nephropathy or glomerulonephritis Creatinine stable at this time Plan: ? Consider outpatient workup #Health Maintenance Disposition: Telemetry DVT prophylaxis: SCDs GI prophylaxis: Protonix Diet: Pending swallow eval CODE STATUS: Full Patient seen and care discussed with my attending physician, Dr. Bella Cooley, PGY-2
[2024-12-26] MEDS: ATORVASTATIN CALCIUM 20 MG TABLET 40 MG PO (22:15)
[2024-12-26] MEDS: HYDROcodone/APAP 5/325 TABLET 1 TAB PO (22:36)
[2024-12-26] MEDS: Magnesium Sulfate 2 GM Ivpb 2 GM/50 ML BAG IV (23:00)
[2024-12-27] VITALS (10 sets, daily range): BP systolic 109–139; BP diastolic 73–88; PULSE 76–110; RESP 12–24; TEMP 36.2–36.7; O2SAT 97–99; BMI 33.1
--- NOTE | 2024-12-27 | XR_ITS ---
Examinations: MRI Brain without intravenous contrast. MRA brain without intravenous contrast. MRA carotids without intravenous contrast 3-D vascular reconstructions Date and time of exam: December 27, 2024, 0824 hrs. Indications: Stroke alert December 26, 2024, sudden onset right-sided upper and lower extremity weakness difficulty with speech, double vision altered gait Technique: Multiple axial and sagittal images of the brain have been obtained MRA brain carotid images without contrast obtained, including 3-D postprocessing, vascular maximum intensity projection images Findings: Sell[place] is not enlarged. The optic chiasm and infundibular stalk are not remarkable. Prepontine and interpeduncular cisterns are not enlarged. No localized enlargement of the medulla or graham. Fourth ventricle and cerebellar tonsils normal in position. Subacute hemorrhage is not seen. Fourth ventricle is midline. Mass in the cerebellopontine angle region is not evident. 7th and 8th nerve complexes exhibits symmetry. Globes are symmetrical with no retro-orbital mass. Increased white matter signal evident, 2 punctate foci increased signal in the left frontal white matter FLAIR image 18 Diffusion-weighted images demonstrate no focus restricted diffusion Mass-effect upon the ventricular system is not identified. Impression: Negative for acute hemorrhage mass effect or midline shift No acute infarct 2 punctate foci increased signal left frontal white matter, FLAIR image 18, demyelinating disease pattern
--- NOTE | 2024-12-27 01:37 | PC.NURSE ---
notified Dr Calle pt sustaining HR 110-120, pt is laying in bed and states that she feels fine, no complaints of SOB
[2024-12-27] MEDS: SODIUM CHLORIDE 0.9% 1000 ML 1,000 ML 100 ML IV ×2 (03:26→14:50)
[2024-12-27 05:45] LABS: Basophils # (Auto) 0.0 Thou/mm3 (0.0-0.2); Basophils % (Auto) 0 % (0-2.5); Eosinophils # (Auto) 0.2 Thou/mm3 (0.0-0.5); Eosinophils % (Auto) 3 % (0-10); Hematocrit 34.2 % (36.0-46.0); Hemoglobin 11.3 g/dL (12.0-16.0); Immature Granulocytes Auto 0.02 Thou/mm3 (0.00-0.00); Lymphocytes # (Auto) 2.7 Thou/mm3 (1.0-4.8); Lymphocytes % (Auto) 37 % (10-50); Mean Corpuscular HGB Conc 33.0 g/dl (31.0-37.0); Mean Corpuscular Hemoglobin 29.8 pg (25.0-35.0); Mean Corpuscular Volume 90 fL (80-100); Monocytes # (Auto) 0.6 Thou/mm3 (0.0-0.8); Monocytes % (Auto) 8 % (0-12); Neutrophils # (Auto) 3.7 Thou/mm3 (1.8-7.7); Neutrophils % (Auto) 52 % (37-80); Nucleated Red Blood Cell # 0.00 Thou/mm3 (0.00-0.00); Nucleated Red Blood Cell % 0 /100 WBC (0); Platelet Count 178 Thou/mm3 (140-440); RDW Standard Deviation 45.8 fL (36.4-46.3); Red Blood Count 3.79 Miln/mm3 (4.00-5.20); White Blood Count 7.2 Thou/mm3 (3.6-11.0)
[2024-12-27 06:01] LABS: Glucose Estimated Average 103 mg/dL (80-131); Hemoglobin A1C 5.2 % Hgb (4.8-6.0)
[2024-12-27 06:04] LABS: INR 1.0 (0.9-1.3); Partial Thromboplastin Time 25.6 Seconds (22.0-36.0); Prothrombin Time 11.4 Seconds (9.0-12.2)
[2024-12-27 06:33] LABS: Alanine Aminotransferase 38 U/L (10-49); Albumin, Serum 4.1 gm/dL (3.5-5.0); Albumin/Globulin Ratio 1.6 (1.2-2.2); Alkaline Phosphatase 89 U/L (46-116); Anion Gap 10 (7-16); Aspartate Amino Transferase 43 U/L (0-34); BUN/Creatinine Ratio 12 Ratio (12-20); Bilirubin,Total 2.2 mg/dL (0.3-1.2); Blood Urea Nitrogen 6 mg/dL (9-23); Calcium 8.2 mg/dL (8.3-10.6); Calcium (Corrected) 8.2 mg/dL (8.5-10.1); Carbon Dioxide 22.5 mMol/L (20.0-31.0); Cardiac Risk Estimate 3.4 RATIO (3.7-5.6); Chloride 106 mMol/L (98-107); Cholesterol 186 mg/dL (132-200); Creatinine (Component) 0.5 mg/dL (0.6-1.3); Estimated Creatinine Clearance 142.1 mL/min (>60); Globulin 2.5 gm/dL (2.3-3.5); Glucose 94 mg/dL (74-106); HDL Cholesterol 54 mg/dL (40-60); LDL Cholesterol,Calculated 105 mg/dL (0-130); Magnesium 2.0 mg/dL (1.6-2.6); Osmolality,Calculated 273 (275-295); Phosphorous 2.9 mg/dL (2.4-5.1); Potassium 3.6 mMol/L (3.4-5.1); Sodium 138 mMol/L (136-145); Thyroid Stimulating Hormone 0.75 uIU/mL (0.55-4.78); Total Protein 6.6 gm/dL (5.7-8.2); Triglycerides 137 mg/dL (30-150); eGFR > 60 See Note
[2024-12-27] MEDS: CALCIUM CARBONATE 600 MG TABLET PO (08:03)
[2024-12-27] MEDS: HYDROcodone/APAP 5/325 TABLET 1 TAB PO ×4 (08:03→23:18)
[2024-12-27] MEDS: PANTOPRAZOLE 40 MG TABLET PO (08:04)
--- NOTE | 2024-12-27 10:27 | PC.SS ---
Addendum entered by SEPIDEH Chavarria 12/27/24 15:52: Rounding note: stroke work up, pending neuro recommendation, d/c 1 day. Original Note: Patient is a 34 year old female presenting to the hospital for stroke rule out. EQUITY SALES ASSISTANT met with patient at bedside, role and reason for visit was explained. Patient confirmed that she lives at [address] [place] [address] in [place] and stated she lives with her sister. Patient stated that in case she is unable to make medical decisions on her own she would like her mother Mercy Gregorio to make them [phone]. Patient reported that she is unemployed, does not use DME, PCP is Phuong, pharmacy is [facility] on [address]. Patient stated that once she is medically clear she will return home and family will provide transportation. PCP: BRENNEN Decision maker: [facility] D/C: home
--- NOTE | 2024-12-27 11:53 | ESPR_ITS ---
Documentation for date of: 12/27/24 Subjective Subjective Interval history: Patient examined at bedside. Has no major complaints stating that symptoms have resolved since admission. Vitals are stable. Potassium 3.6, other electrolytes unremarkable. A1c for restratification normal at 5.2. Bilirubin is downtrending to 2.2. Allow for permissive hypertension for 24 hours. At time of discharge we will change antihypertensive regimen as currently she is receiving metoprolol with propranolol outpatient. Propranolol for anxiety. Continue aspirin and Plavix. Echo is pending. Final neuro recommendations pending. Exam Vital Signs Temp Pulse Resp BP Pulse Ox O2 Del Method 97.2 F 86 22 H 114/77 99 Room Air 12/27/24 08:00 12/27/24 08:00 12/27/24 08:00 12/27/24 08:00 12/27/24 08:00 12/27/24 08:00 Narrative Exam General: Yound female, No acute distress, cooperative HEENT: NCAT, No JVD noted. Mucosa moist. Pupils are equal and reactive to light bilaterally Cardiovascular: Normal S1 and S2. Regular rate and rhythm. Respiratory: Lungs are clear to auscultation bilaterally. No wheezing or crackles heard. Abdomen: Soft, nontender, not distended, normal bowel sounds. Skin: Warm to touch, dry, no rashes noted Musculoskeletal: No gross injuries. Able to move all 4 extremities. No pitting edema Neuro: Alert and oriented x3. No focal neuro deficits. Psych: Normal affect and mood Objective Labs 12/27/24 04:50 12/27/24 04:50 Labs: Laboratory Results - last 24 hr 12/26/24 12/26/24 12/27/24 15:22 17:30 04:50 WBC 10.5 7.2 RBC 4.39 3.79 L Hgb 13.1 11.3 L Hct 37.7 34.2 L MCV 86 90 MCH 29.8 29.8 MCHC 34.7 33.0 RDW Std Deviation 43.0 45.8 Plt Count 187 D 178 Neut % (Auto) 70 52 Lymph % (Auto) 22 37 [place] % (Auto) 7 8 Eos % (Auto) 1 3 Baso % (Auto) 0 0 Neut # (Auto) 7.3 3.7 Lymph # (Auto) 2.3 2.7 [place] # (Auto) 0.7 0.6 Eos # (Auto) 0.1 0.2 Baso # (Auto) 0.0 0.0 Immature Gran # (Auto) 0.03 H 0.02 H Absolute Nucleated RBC 0.00 0.00 Immature Gran % 0 0 Nucleated RBC % 0 0 PT 12.1 11.4 INR 1.1 1.0 APTT 25.5 25.6 Sodium 137 138 Potassium 3.0 L 3.6 D Chloride 102 106 Carbon Dioxide 20.5 22.5 Anion Gap 15 10 BUN 8 L 6 L Creatinine 0.6 0.5 L Estim Creat Clear Calc Not Performed. 142.1 eGFR > 60 > 60 BUN/Creatinine Ratio 13 12 Glucose [address] Glu mg/dL 103 Hemoglobin A1c 5.2 Calculated Osmolality 273 L 273 L Calcium 9.1 8.2 L Corrected Calcium 9.1 8.2 L Phosphorus 2.9 Magnesium 1.4 L 2.0 Total Bilirubin 2.9 H 2.2 H D AST 55 H 43 H ALT 47 38 Alkaline Phosphatase 102 89 Troponin I < 0.002 B-Natriuretic Peptide < 20 Total Protein 8.0 6.6 Albumin 4.9 4.1 D Globulin 3.1 2.5 Albumin/Globulin Ratio 1.6 1.6 Triglycerides 137 Cholesterol 186 LDL Cholesterol, Calc 105 HDL Cholesterol 54 Cholesterol/HDL Ratio 3.4 L TSH 0.75 Ur Collection Type Catheter Urine Color Yellow Urine Clarity Clear Urine pH 6.5 Ur Specific [place] < 1.010 Urine Protein Negative Urine Glucose (UA) Negative Urine Ketones Negative Urine Blood 2+ A Urine Nitrite Negative Urine Bilirubin Negative Urine Urobilinogen (Auto) 6.0 Ur Leukocyte Esterase Positive Urine RBC 6 H Urine WBC 3 Ur Squamous Epith Cells 8 H Urine Bacteria None Urine Opiates Screen Negative Urine Fentanyl Screen Negative Ur Barbiturates Screen Negative U Amphetamin/Meth Scrn Negative U Benzodiazepines Scrn Negative U Cocaine Metab Screen Negative U Marijuana (THC) Screen Negative Ethyl Alcohol < 3.0 Quality Measures Quality Measures stroke Suspected type of Stroke: Non Acute Last known well (date): 12/26/24 Last known well (time): 14:15 Tenecteplase given: Reason(s) Tenecteplase not given: Acute bleeding diathesis (pt reports blood in stool) not given Rehab services: PT evaluation ordered and Speech Language Pathology eval ordered VTE Prophylaxis: mechanical Antithrombotic by day 2:: not indicated (describe) Statin ordered: <75 y/o high intensity dose Anticoagulation ordered for A-fib or flutter (current or hx): ordered Assessment & Plan Assessment Current Active Medications: Generic Name Dose Route Start Last Admin Trade Name Freq PRN Reason Stop Dose Admin Acetaminophen 650 mg 12/26/24 21:57 Acetaminophen 325 Mg Tablet PO 01/25/25 21:56 Q6H PRN Fever >100 or pain 1-3 Hydrocodone Bitart/Acetaminophen 1 tab 12/26/24 21:57 12/27/24 08:03 Hydrocodone/Apap 5/325 Tablet PO 12/31/24 21:56 1 tab Q4HR PRN Administration PAIN SCALE 4-6 (Moderate Atorvastatin Calcium 40 mg 12/26/24 22:00 12/26/24 22:15 Atorvastatin Calcium 20 Mg Tablet PO 01/25/25 21:59 40 mg HS MELVIN Administration Sodium Chloride 1,000 mls @ 100 mls/hr 12/26/24 15:30 12/27/24 03:26 Ns IV 01/25/25 15:29 100 mls/hr Q10H MELVIN Administration Lorazepam 0.5 mg 12/26/24 22:34 12/27/24 00:21 Lorazepam 0.5 Mg Tablet PO 12/31/24 22:33 0.5 mg Q4HR PRN Administration CIWA Score 2-6 Lorazepam 2 mg 12/26/24 22:34 Lorazepam 0.5 Mg Tablet PO 12/31/24 22:33 Q4HR PRN CIWA SCORE 12-15 Lorazepam 1 mg 12/26/24 22:34 Lorazepam 0.5 Mg Tablet PO 12/31/24 22:33 Q4HR PRN CIWA SCORE 7-11 Ondansetron HCl 4 mg 12/26/24 21:57 Ondansetron Inj 2 Mg/Ml Inj 2 Ml IVP 01/25/25 21:56 Q6H PRN NAUSEA OR VOMITING Protocol Pantoprazole Sodium 40 mg 12/27/24 09:00 12/27/24 08:04 Pantoprazole 40 Mg Tablet PO 01/26/25 08:59 40 mg QDAY MELVIN Administration Plan Julissa is a 34-year-old female with a past medical history of anxiety, hypertension, and GERD who presented with generalized weakness. Admitted for stroke workup and electrolyte abnormalities. #Generalized weakness #Hypertensive emergency-resolved Ddx: TIA, ischemic stroke, seizure, hypertension, electrolyte imbalance, anxiety. Presented with generalized weakenss, right side numbness, photophobia while she was at the store. Denies this happening in the past. UDS negative. Head CT, head neck CTA, and MRI brain unremarkable. Low suspicion for CVA at this time but will complete full work up. A1c 5.2, cholesterol 186, LDL 105, TSH 0.75 ? Neurology consulted, appreciate recs ? Speech therapy ? Physical therapy ? Seizure precautions ? Echo pending ? Neurochecks every 4 hours ? Head of bed elevation 30 degrees ? Bedrest ? Lipitor 40 mg at bedtime -continue aspirin 81mg daily -Plavix 75 mg daily #Electrolyte disturbances-resolving ? Trend with CMP and lytes ? Replete as needed #Alcohol use disorder Admission blood alcohol level of 3 Patient was recently in the ER for alcohol intoxication Patient did present tachycardic and seems a bit anxious at this time. ? CIWA protocol #Hyperbilirubinemia-improving #Transaminitis-improving Gallbladder ultrasound unremarkable for CBD dilatation, shows absent gallbladder. She has history of biliary leak status post biliary stents. ALP negative, AST slightly elevated Gallbladder ultrasound was negative for stones, mild hepatomegaly. ? Trend with CMP #Asymptomatic bacteriuria Plan: ? Treat if patient becomes symptomatic #Hematuria-resolved +2 blood, RBCs 6 Blood seen on previous urinalyses in 2024 RBCs seen as early as 2022 Patient could have underlying kidney disease such as IgA nephropathy or glomerulonephritis Creatinine stable at this time ? continue to monitor Health maintainence: Disposition: Telemetry for stroke workup, echo and neuro recs pending DVT prophylaxis: SCDs GI prophylaxis: Protonix Diet: regular CODE STATUS: Full The patient's management plan was discussed with my attending physician Dr. Wilkins. Jayne Ma, PGY-2 Attending Provider Attestation/Addendum I have discussed and was present for the essential components of the history, physical examination, diagnosis, and treatment plan with the resident. I agree with the patient's care as documented by the resident and amended herein by me. Bharat Wilkins, DO. Although this document has been carefully reviewed, there may still be some phonetic and other typographical errors. These errors are purely grammatical due to imperfections in the software program and should not be construed in any way to compromise the substance of the patient's medical care during this visit. Patient seen and evaluated this AM. No acute events overnight, vital signs stable, patient afebrile, patient states her symptoms have completely resolved at this point. Labs largely unremarkable today, TDariana grimaldo downtrending. CT head negative, MRI brain negative, patient still on aspirin and Plavix, neurology consulted, appreciate final recommendations, anticipate discharge either today or tomorrow. Echo also pending.
--- NOTE | 2024-12-27 12:27 | PC.PT ---
PT assessment performed, no additional PT recommended. Recommend patient home when medically appropriate.
[2024-12-27] MEDS: ASPIRIN EC 81 MG TABEC PO (13:26)
[2024-12-27] MEDS: CLOPIDOGREL BISULFATE 75 MG TABLET PO (13:26)
[2024-12-27] MEDS: ATORVASTATIN CALCIUM 20 MG TABLET 40 MG PO (20:09)
--- NOTE | 2024-12-27 23:17 | VVPN_ITS ---
Telemedicine visit statement This visit was conducted with the use of phone was obtained on 12/27/24 at 2317. Documentation for date of: 12/27/24 Subjective Subjective Interval history: Patient is in telemetry today, no recurrent symptoms reported. No more weakness or paresthesias reported. Virtual exam Vital Signs Temp Pulse Resp BP Pulse Ox O2 Del Method 97.6 F 97 19 129/78 99 Room Air 12/27/24 19:46 12/27/24 20:00 12/27/24 19:46 12/27/24 19:46 12/27/24 19:46 12/27/24 19:46 Objective Labs 12/27/24 04:50 12/27/24 04:50 Labs: Laboratory Results - last 24 hr 12/27/24 04:50 WBC 7.2 RBC 3.79 L Hgb 11.3 L Hct 34.2 L MCV 90 MCH 29.8 MCHC 33.0 RDW Std Deviation 45.8 Plt Count 178 Neut % (Auto) 52 Lymph % (Auto) 37 [place] % (Auto) 8 Eos % (Auto) 3 Baso % (Auto) 0 Neut # (Auto) 3.7 Lymph # (Auto) 2.7 [place] # (Auto) 0.6 Eos # (Auto) 0.2 Baso # (Auto) 0.0 Immature Gran # (Auto) 0.02 H Absolute Nucleated RBC 0.00 Immature Gran % 0 Nucleated RBC % 0 PT 11.4 INR 1.0 APTT 25.6 Sodium 138 Potassium 3.6 D Chloride 106 Carbon Dioxide 22.5 Anion Gap 10 BUN 6 L Creatinine 0.5 L Estim Creat Clear Calc 142.1 eGFR > 60 BUN/Creatinine Ratio [address] Glu mg/dL 103 Hemoglobin A1c 5.2 Calculated Osmolality 273 L Calcium 8.2 L Corrected Calcium 8.2 L Phosphorus 2.9 Magnesium 2.0 Total Bilirubin 2.2 H D AST 43 H ALT 38 Alkaline Phosphatase 89 Total Protein 6.6 Albumin 4.1 D Globulin 2.5 Albumin/Globulin Ratio 1.6 Triglycerides 137 Cholesterol 186 LDL Cholesterol, Calc 105 HDL Cholesterol 54 Cholesterol/HDL Ratio 3.4 L TSH 0.75 Assessment & Plan Problem List (1) Stroke-like symptoms: Status: Acute Assessment and plan: resolved MRI brain: resulted negative for acute infarction, 2 insignificant wm changes, not suggestive of Demyelinating disease. No need for any more workup to rule out LEAD ELECTRICAL ENGINEER demyelinating disease.
[2024-12-28] VITALS: BP 123/88; PULSE 113; PULSE 86; RESP 19; TEMP 36.3; O2SAT 98
[2024-12-28] MEDS: SODIUM CHLORIDE 0.9% 1000 ML 1,000 ML 100 ML IV ×2 (00:15→10:23)
--- NOTE | 2024-12-28 03:53 | PC.NURSE ---
Pt transferred to room 351 from tele floor room 263, pt is alert and oriented, no weakness at this time.
--- NOTE | 2024-12-28 03:53 | PC.NURSE ---
report given to tami ceballos
[2024-12-28 04:00] VITALS: BP 127/84; PULSE 79; PULSE 91; RESP 16; TEMP 37.1; O2SAT 98
[2024-12-28 05:35] LABS: Basophils # (Auto) 0.0 Thou/mm3 (0.0-0.2); Basophils % (Auto) 0 % (0-2.5); Eosinophils # (Auto) 0.1 Thou/mm3 (0.0-0.5); Eosinophils % (Auto) 2 % (0-10); Hematocrit 34.4 % (36.0-46.0); Hemoglobin 11.4 g/dL (12.0-16.0); Immature Granulocytes Auto 0.01 Thou/mm3 (0.00-0.00); Lymphocytes # (Auto) 2.5 Thou/mm3 (1.0-4.8); Lymphocytes % (Auto) 41 % (10-50); Mean Corpuscular HGB Conc 33.1 g/dl (31.0-37.0); Mean Corpuscular Hemoglobin 30.2 pg (25.0-35.0); Mean Corpuscular Volume 91 fL (80-100); Monocytes # (Auto) 0.4 Thou/mm3 (0.0-0.8); Monocytes % (Auto) 6 % (0-12); Neutrophils # (Auto) 3.1 Thou/mm3 (1.8-7.7); Neutrophils % (Auto) 50 % (37-80); Nucleated Red Blood Cell # 0.00 Thou/mm3 (0.00-0.00); Nucleated Red Blood Cell % 0 /100 WBC (0); Platelet Count 133 Thou/mm3 (140-440); RDW Standard Deviation 47.0 fL (36.4-46.3); Red Blood Count 3.78 Miln/mm3 (4.00-5.20); White Blood Count 6.1 Thou/mm3 (3.6-11.0)
[2024-12-28 06:40] LABS: Alkaline Phosphatase 81 U/L (46-116); Anion Gap 11 (7-16); BUN/Creatinine Ratio 10 Ratio (12-20); Blood Urea Nitrogen < 5 mg/dL (9-23); Calcium 8.5 mg/dL (8.3-10.6); Carbon Dioxide 21.4 mMol/L (20.0-31.0); Chloride 110 mMol/L (98-107); Creatinine (Component) 0.5 mg/dL (0.6-1.3); Estimated Creatinine Clearance 146.4 mL/min (>60); Glucose 107 mg/dL (74-106); Magnesium 1.8 mg/dL (1.6-2.6); Osmolality,Calculated 280 (275-295); Potassium 3.6 mMol/L (3.4-5.1); Sodium 142 mMol/L (136-145); eGFR > 60 See Note
[2024-12-28 06:43] LABS: Alanine Aminotransferase 35 U/L (10-49); Albumin, Serum 4.0 gm/dL (3.5-5.0); Albumin/Globulin Ratio 1.7 (1.2-2.2); Aspartate Amino Transferase 36 U/L (0-34); Bilirubin,Total 1.4 mg/dL (0.3-1.2); Calcium (Corrected) 8.5 mg/dL (8.5-10.1); Globulin 2.4 gm/dL (2.3-3.5); Phosphorous 2.9 mg/dL (2.4-5.1); Total Protein 6.4 gm/dL (5.7-8.2)
[2024-12-28 08:00] VITALS: BP 132/84; PULSE 97; RESP 16; TEMP 36.6; O2SAT 99
[2024-12-28 08:15] VITALS: PULSE 113
[2024-12-28] MEDS: ASPIRIN EC 81 MG TABEC PO (08:26)
[2024-12-28] MEDS: CLOPIDOGREL BISULFATE 75 MG TABLET PO (08:26)
[2024-12-28] MEDS: PANTOPRAZOLE 40 MG TABLET PO (08:26)
--- NOTE | 2024-12-28 10:23 | ESDS_ITS ---
<Statement entered by Jayne Ma MD - 12/28/24 12:39> 34[facility] chief [facility] generalized weakness, vision changes, slurred speech. She was in her usual state of health when suddenly started feeling the symptoms while at the store with her mother. She is admitted for stroke workup. Teleneuro was consulted NIHSS score 2 and given loading dose aspirin and Plavix. All workup including CT head, CTA head/neck, MRI brain were negative for any acute changes or shifts. She is in stable condition and ready for discharge. The patient's management plan was discussed with my attending physician Dr. Wilkins. Jayne Ma, PGY-2 Planned Discharge Date 12/28/24 DS: Providers Provider Date of admission: 12/26/24 21:56 Primary care physician: Physician No Primary/Family Admitting Provider: Aaron Blanco MD Attending Provider on Admission: Aaron Blanco MD Consults: 12/26/24 15:25 Consult to Neurology / Tele-Neurology Routine Comment: Consulting Provider: [facility] 12/26/24 21:59 Consult to Neurology / Tele-Neurology Routine Comment: Consulting Provider: Adrián Cook Referral Physical Therapy Routine Comment: Physician Instructions: Referral Speech Therapy Routine Comment: Attending Provider on DC: Mani Wilkins DO Discharging Provider: René Hugo DO DS: Diagnosis Problem List Completed Was Problem List Reviewed/Reconciled?: Yes Hospital Course Hospital Course Hospital course: Julissa is a 34-year-old female with a past medical history of anxiety, hypertension, and GERD who presented to the ED on 12/26 for an evaluation of right sided upper and lower extremity weakness, trouble with speech, double vision and trouble with gait. Patient reports that she has never had the symptoms before and this had occurred while being at the store with her mom. She reports that she did not pass out or fall, however felt like she was having trouble moving. She also reports that she was having trouble with speech and was having trouble seeing words. She has never had a seizure before. She did report a headache at the time which is rated 5 out of 10, right sided. Denies a history of migraines. She did not lose her vision. She does admit to having palpitations at that time. In the ED, she was found to have hypokalemia 3.0 and hypomagnesemia 1.4. These were repleted. T. bili was elevated at 2.1. Head CT was done and did not show any acute hemorrhage, mass effect or midline shift. Head neck CTA was done which showed no large vessel occlusion. Teleneuro was consulted which obtained an NIHSS score of 2, and recommend admission with loading aspirin and Plavix in addition to further workup and MRI. Medicine was consulted and patient admitted to the floors. 12/27: Gallbladder ultrasound done for elevated T.bili was unremarkable for CBD dilatation, stones, shows absent gallbladder. She has history of biliary leak status post biliary stents. ALP negative, AST slightly elevated. MRI of the brain showed no evidence of acute hemorrhage or mass effect, but two foci of increased signal strength in left frontal white matter, this was deemed insignificant by neurology. 12/28: Patient's symptoms had resolved, T.bili continued to downtrend, and electrolyte abnormalities were corrected. It was noted that the patient was taki ng metoprolol for HTN and propranolol for anxiety. The metoprolol was switched to amlodipine for the management of anxiety. She was noted to have hematuria and bacteruria on UA in the ED, was monitered for symptoms of UTI but she remained asymptomatic. The hematuria resolved. The patient was subsequently discharged in stable condition. Discharge Recommendations: -Stop taking metoprolol for management of primary hypertension. Switched to amlodipine. -Continue propranolol as management for your anxiety. -Follow up with PCP for adjustment of medications. Discharge diagnoses: #Generalized weakness-resolved #Hypertensive emergency-resolved #Electrolyte disturbances-resolved #Hyperbilirubinemia-improving #Asymptomatic bacteriuria #Hematuria-resolved Time Spent with Patient Time attestation: Total time spent providing and/or coordinating discharge services: Time spent: Greater than 30 minutes Exam Vital Signs Temp Pulse Resp BP Pulse Ox O2 Del Method 97.9 F 113 H 16 132/84 H 99 Room Air 12/28/24 08:00 12/28/24 08:15 12/28/24 08:00 12/28/24 08:00 12/28/24 08:00 12/28/24 08:00 Narrative Exam General: Young female, No acute distress, cooperative HEENT: NCAT, No JVD noted. Mucosa moist. Pupils are equal and reactive to light bilaterally Cardiovascular: Regular rate and rhythm. Respiratory: No tachypnea or labored speech. No audible wheezes. Abdomen: Soft, non-distended Skin: Warm to touch, dry, no rashes noted Musculoskeletal: No gross injuries. Able to move all 4 extremities. No pitting edema Neuro: Alert and oriented x3. No focal neuro deficits. Psych: Normal affect and mood Discharge Plan Plan Patient Disposition: HOME (Self Care) Patient condition on transfer: Stable Prescriptions/Referrals Prescriptions/Med Rec: New amlodipine 5 mg tablet 5 mg PO QDAY 30 Days Qty: 30 0RF Continued propranolol 20 mg tablet 20 mg PO BID 30 Days Qty: 60 0RF Patient Comments: TAKE 1 TABLET BY MOUTH TWICE A DAY FOR 30 DAYS Discontinued metoprolol succinate 25 mg tablet extended release 24 hr 25 mg PO BID Qty: 60 0RF metoprolol succinate 25 mg tablet extended release 24 hr 25 mg PO Q12H Referrals: Jayne Ma MD [Resident, Internal Medicine] No Primary/Family,Physician [Primary Care Provider] Patient/Caregiver Discharge Instructions Other Discharge Activity Instructions:: Stop taking metoprolol as treatment for your blood pressure. management of primary hypertension. In addition, two antihypertensive medications from the same drug class should be avoided. You may continue propranolol as management for your anxiety. Start taking amlodipine as treatment for high blood pressure. Your PCP can increase dose as needed to optimize your BP. Follow up with PCP for adjustment of medications. If you do not have a PCP, call [facility] at [phone]. Education Materials: Controlling High Blood Pressure, ED TIA: Transient Ischemic Attack Print Language: Frisian Stand Alone Forms: Caitlin Award Info., Patient Portal Info Letter Discharge Order Discharge Orders: Discharge (Routine); Ordered 12/28/24 Ordered By: Jayne Ma Quality Discharge Quality Measures VTE prophylaxis Attestestation Attestation I have discussed and was present for the essential components of the discharge history, physical examination, diagnosis, and discharge treatment plan with the resident. I agree with the patient's discharge care as documented by the resident and amended herein by me. Bharat Wilkins, . The patient understood all discharge instructions, all questions were answered satisfactorily. The patient was instructed to return to the Emergency Department is symptoms worsened or persisted. CVA ruled out, per neurology recommendations no aspirin and no Plavix are recommended at this time. The patient came in taking propranolol and metoprolol, apparently the propranolol for anxiety and the metoprolol for blood pressure. Unclear why she was placed on 2 beta-blockers at [facility] however I am discontinuing the metoprolol and placing her on amlodipine for blood pressure control, she can continue with the propranolol 20 mg twice daily for off-label use for presumed situation anxiety, All questions answered satisfactorily, patient cleared for discharge and should follow-up with her primary care physician within 1 week of discharge. Although this document has been carefully reviewed, there may still be some phonetic and other typographical errors. These errors are purely grammatical due to imperfections in the software program and should not be construed in any way to compromise the substance of the patient's medical care during this visit.
--- NOTE | 2024-12-28 11:15 | PC.NURSE ---
Called Dr. Ma regarding order for Echo prior to discharge, per MD will cancel Echo, patient does not need it. Okay to discharge.
--- NOTE | 2024-12-28 11:42 | PC.NURSE ---
@1142 Patient requesting for medication refill, propanolol, patient states only has one left and will need to schedule follow up appointment with PCP. Called Dr. Murray and informed her, per MD will order and send to patient's pharmacy of choice [facility] on [address].
[2024-12-28 12:00] VITALS: BP 128/79; PULSE 92; RESP 16; TEMP 36.6; O2SAT 99
== END 2024-12-28 11:46 | disposition home or self-care (01) ==
LOC: SERX 18:19 → S2NX 12-27 20:50 → S3NX 12-29 05:32 → SERHOLD 12-29 05:32
PROVIDERS: Family Medicine; Admitting Provider Internal Medicine; Emergency Provider Emergency Medicine; Visit Provider Internal Medicine
DX: I16.1 Hypertensive emergency (principal); R53.1 Weakness; I10 Essential (primary) hypertension; R82.71 Bacteriuria; F41.9 Anxiety disorder, unspecified; K21.9 Gastro-esophageal reflux disease without esophagitis; R51.9 Headache, unspecified; R00.2 Palpitations; Z90.49 Acquired absence of other specified parts of digestive tract; F17.210 Nicotine dependence, cigarettes, uncomplicated; R17 Unspecified jaundice; R74.01 Elevation of levels of liver transaminase levels; F10.129 Alcohol abuse with intoxication, unspecified; R31.9 Hematuria, unspecified; E83.42 Hypomagnesemia; E87.6 Hypokalemia; H53.2 Diplopia
CPT/HCPCS: 36415; 70450; 70496; 70498; 70544; 76705; 80053; 80061; 80307; 80320; 81001; 83036; 83735; 83880; 84100; 84443; 84484; 85025; 85610; 85730; 87086; 92610; 96360; 96361; 97161; 99285; A4649; G0378; J3475; J7030; Q9967; A9270; G0480

== ENCOUNTER 2025-01-11 06:04 | Emergency (ER) | payer MEDICAID, SELFPAY ==
[2025-01-11 06:06] VITALS: BMI 32.5
[2025-01-11 06:13] VITALS: BP 135/84; PULSE 135; RESP 19; TEMP 36.9; O2SAT 97
--- NOTE | 2025-01-11 06:19 | EKG_ITS ---
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
--- NOTE | 2025-01-11 06:45 | PD.EDRME ---
Rapid Medical Screening Exam RME Arrival date/time: 01/11/25 06:04 This is a 34-year-old female who comes into the emergency room with complaints of chest pain and shortness of breath. Patient also complains of palpitations. Patient states she been up all night and states her heart was racing. Patient was recently in the hospital and was being worked up for possible stroke but MRI was negative for acute stroke. Patient was on a beta-kameron while she was in the hospital. Initially she reports that she was on propranolol for her heart rate and anxiety and then they switched her to metoprolol. Patient states that before she was discharged they took her off her metoprolol and told her that she should be on a different medication. Patient also has a history of anxiety GERD and alcoholism. I have greeted and performed a focused initial assessment of this patient. Initial appropriate labs ordered at this time. A comprehensive ED assessment and evaluation of the patient and analysis of all test and completion of medical decision making process will be conducted by additional ED provider. Chief Complaint: Arrhythmia/Palpitations Time Seen by Provider: 01/11/25 06:17 Vital signs: Vital Signs Temperature 98.4 F 01/11/25 06:13 Pulse Rate 135 H 01/11/25 06:13 Respiratory Rate 19 01/11/25 06:13 Blood Pressure 135/84 H 01/11/25 06:13 Pulse Oximetry (%) 97 01/11/25 06:13 Oxygen Delivery Method Room Air 01/11/25 06:13
--- NOTE | 2025-01-11 07:41 | PC.NURSE ---
NO ANSWER IN LOBBY
--- NOTE | 2025-01-11 07:50 | PC.NURSE ---
PT DID NOT ANSWER WHEN CALLED IN LOBBY OR OUTSIDE.
--- NOTE | 2025-01-11 08:06 | PC.NURSE ---
called pt back no answer at this time
--- NOTE | 2025-01-11 08:45 | PD.EDADDENDU ---
Emergency Room Addendum Addendum Narrative: This patient eloped from the emergency department before I could evaluate her. Her liver in the Emergency Department multiple times however patient did not answer
== END 2025-01-11 08:47 | disposition left against medical advice (07) ==
PROVIDERS: Emergency Provider Emergency Medicine; PCP Family Medicine
DX: R07.9 Chest pain, unspecified (principal); R06.02 Shortness of breath; R00.2 Palpitations; R00.0 Tachycardia, unspecified; R94.31 Abnormal electrocardiogram [ECG] [EKG]
CPT/HCPCS: 80053; 80307; 83880; 84436; 84443; 84484; 84703; 85025; 93005; 99283

== ENCOUNTER 2025-01-11 22:21 | Emergency (ER) | payer MEDICAID, SELFPAY ==
[2025-01-11 22:27] VITALS: BP 124/87; PULSE 126; RESP 22; TEMP 37.2; O2SAT 97
[2025-01-11 22:32] VITALS: PULSE 112; RESP 19; O2SAT 98; BMI 32.5
--- NOTE | 2025-01-11 22:40 | PD.EDRME ---
Rapid Medical Screening Exam RME Arrival date/time: 01/11/25 22:21 CC: Alcohol intoxication with chest pain HPI patient presents to the ER via EMS states that he is she is drunk B boxes . These are mixed cocktails. The patient has known history of alcoholism with us. Patient recently discharged from this facility this month for CVA, and was seen here early this morning for hypertension. Patient denies fever chills shortness of breath or difficulty breathing. Chief Complaint: Dizziness Time Seen by Provider: 01/11/25 22:39 Vital signs: Vital Signs Temperature 98.9 F 01/11/25 22:27 Pulse Rate 126 H 01/11/25 22:27 Respiratory Rate 22 H 01/11/25 22:27 Blood Pressure 124/87 H 01/11/25 22:27 Pulse Oximetry (%) 97 01/11/25 22:27 Oxygen Delivery Method Room Air 01/11/25 22:27
[2025-01-11 22:42] VITALS: BP 137/95; PULSE 118; RESP 19; TEMP 37.2; O2SAT 94
[2025-01-11 23:24] LABS: Collection Type, Urine Clean Catch
[2025-01-11 23:26] LABS: Basophils # (Auto) 0.1 Thou/mm3 (0.0-0.2); Basophils % (Auto) 1 % (0-2.5); Eosinophils # (Auto) 0.2 Thou/mm3 (0.0-0.5); Eosinophils % (Auto) 2 % (0-10); Hematocrit 37.1 % (36.0-46.0); Hemoglobin 12.8 g/dL (12.0-16.0); Immature Granulocytes Auto 0.06 Thou/mm3 (0.00-0.00); Lymphocytes # (Auto) 5.0 Thou/mm3 (1.0-4.8); Lymphocytes % (Auto) 52 % (10-50); Mean Corpuscular HGB Conc 34.5 g/dl (31.0-37.0); Mean Corpuscular Hemoglobin 29.9 pg (25.0-35.0); Mean Corpuscular Volume 87 fL (80-100); Monocytes # (Auto) 0.4 Thou/mm3 (0.0-0.8); Monocytes % (Auto) 4 % (0-12); Neutrophils # (Auto) 4.1 Thou/mm3 (1.8-7.7); Neutrophils % (Auto) 42 % (37-80); Nucleated Red Blood Cell # 0.00 Thou/mm3 (0.00-0.00); Nucleated Red Blood Cell % 0 /100 WBC (0); Platelet Count 296 Thou/mm3 (140-440); RDW Standard Deviation 46.9 fL (36.4-46.3); Red Blood Count 4.28 Miln/mm3 (4.00-5.20); White Blood Count 9.8 Thou/mm3 (3.6-11.0)
[2025-01-11 23:32] LABS: Bilirubin,Urine Negative (Negative); Blood,Urine Negative (Negative); Clarity,Urine Clear (Clear/Hazy); Color,Urine Lt-Yellow (Lt Yel-Yel); Culture Indicated,Urine Not Indicated; Glucose, Urine Negative (Negative); Ketones,Urine Negative (Negative); Leukocyte Esterase,Urine Negative (Negative); Nitrite,Urine Negative (Negative); PH,Urine 6.5 (5.0-7.0); Protein,Urine Negative (Neg - Trace); RBC,Urine 2 /hpf (0-3); Specific Gravity,Urine 1.014 (1.001-1.035); Squamous Epithelial Cell,Urine 3 /hpf (0-5); Urobilinogen,Urine Negative mg/dL (0.0-1.0); WBC,Urine < 1 /hpf (0-5)
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
[2025-01-11 23:47] LABS: Amphetamine/Methamp Scrn,U Negative (Negative); Barbiturate Screen,Urine Negative (Negative); Benzodiazepines Screen,Urine Negative (Negative); Benzoylecgonine Screen, Ur Positive (Negative); Fentanyl Screen,Urine Negative (Negative); Opiate Screen,Urine Negative (Negative); THC Screen,Urine Negative (Negative)
[2025-01-11 23:51] LABS: INR 1.1 (0.9-1.3); Partial Thromboplastin Time 28.7 Seconds (22.0-36.0); Prothrombin Time 11.6 Seconds (9.0-12.2)
[2025-01-11 23:52] LABS: B-Type Natriuretic Peptide < 20 pg/mL (0-100)
[2025-01-12 00:18] LABS: Alanine Aminotransferase 24 U/L (10-49); Albumin, Serum 4.6 gm/dL (3.5-5.0); Albumin/Globulin Ratio 1.6 (1.2-2.2); Alkaline Phosphatase 109 U/L (46-116); Anion Gap 15 (7-16); Aspartate Amino Transferase 28 U/L (0-34); BUN/Creatinine Ratio 15 Ratio (12-20); Bilirubin,Total 1.2 mg/dL (0.3-1.2); Blood Urea Nitrogen 9 mg/dL (9-23); Calcium 9.1 mg/dL (8.3-10.6); Calcium (Corrected) 9.1 mg/dL (8.5-10.1); Carbon Dioxide 21.2 mMol/L (20.0-31.0); Chloride 107 mMol/L (98-107); Creatinine (Component) 0.6 mg/dL (0.6-1.3); Estimated Creatinine Clearance 122.4 mL/min (>60); Globulin 2.8 gm/dL (2.3-3.5); Glucose 114 mg/dL (74-106); LDH (Lactate Dehydrogenase) 211 U/L (120-246); Magnesium 1.8 mg/dL (1.6-2.6); Osmolality,Calculated 284 (275-295); Potassium 3.5 mMol/L (3.4-5.1); Sodium 143 mMol/L (136-145); Total Protein 7.4 gm/dL (5.7-8.2); Troponin I < 0.002 ng/mL (0.0-0.045); eGFR > 60 See Note
[2025-01-12 00:30] LABS: Alcohol, Blood Medical 380.9 mg/dL (0-10.0)
[2025-01-12 00:35] LABS: HCG Qualitative,Urine Negative
[2025-01-12 00:47] VITALS: BP 143/109; PULSE 115
[2025-01-12] MEDS: METOPROLOL TARTRATE INJ 1 MG/ML AMP 5 ML 2.5 MG IVP (00:47)
[2025-01-12] MEDS: SODIUM CHLORIDE 0.9% 1000 ML 1,000 ML 999 ML IV (00:48)
[2025-01-12] MEDS: THIAMINE INJ 100 MG/ML VIAL 2 ML IVP (00:48)
[2025-01-12] MEDS: FOLIC ACID INJ 1 MG/0.2 ML IVP (00:49)
[2025-01-12] MEDS: DIAZEPAM INJ 5 MG/ML VIAL 2 ML 2.5 MG IVP (01:18)
[2025-01-12] MEDS: Magnesium Sulfate 2 GM Ivpb 2 GM/50 ML BAG IV (01:18)
[2025-01-12 01:25] VITALS: BP 127/94; PULSE 107; RESP 19; TEMP 37; O2SAT 98
[2025-01-12 04:41] VITALS: BP 136/102; PULSE 111; RESP 19; O2SAT 97
[2025-01-12 06:04] VITALS: BP 138/89; PULSE 121; RESP 18; TEMP 37; O2SAT 100
--- NOTE | 2025-01-12 06:15 | PD.RESHP ---
Documentation for date of: 01/12/25 HPI History of Present Illness History of present illness: Patient is a 34 year-old female with past medical history of alcoholism, GERD, HTN who presented to the ED on 01/12/2025 with chief complaint of anxiety. Patient reports that for the last one months she has been drinking acute 3-5 beatbox cocktails per day. Prior to 1 month ago patient was dismissed from her job and lost her home recently. Patient reports he is currently living with her mom. She reports anxiety and stress, has a sense of impending doom. She said that she drinks alcohol to fill up the space and to calm her emotions. Patient denies thinking of hurting herself and other orders around. She also endorses headache, nausea and palpitation when she is alcohol intoxicated. Patient also reported occasional dark tarry stools when when she has multiple drinks. However for the last few months she has not noted it. She denies visual auditory hallucination, tremor chills, chest pain, shortness of breath, lightheadedness, abdominal pain, bowel changes, urinary symptoms. ED Course: -Initial vitals were BP 124/87, pulse 76, respiratory 22, temp, temperature 98.9, O2 sat 97% on room air -Labs were unremarkable except for UTOX positive for cocaine and alcohol level of 380.9 - Imaging included EKG that showed sinus tachycardia with a rate 121 and QTc 459 -In the ED, patient was given metoprolol tartrate 2.5 mg, 1 L NS, thiamine 100 mg IVP, magnesium sulfate 2 mg, diazepam 2.5 mg x 1 -Patient was admitted for alcohol withdrawal evaluation and management Review of Systems Review of systems otherwise negative except what is mentioned above. Past Medical History: GERD/peptic ulcer, TIA Family History: Diabetes mellitus Surgical History: Cholecystectomy, biliary stents, appendectomy Social History: Denies history of smoking. Patient denies cocaine use however UTOX was positive. Patient reports sobriety for 1 year. Recently dismissed from her job and lost her home. Currently living with her mom Current Medications: Amlodipine 5 mg p.o. and metoprolol Allergies: No known drug allergies Exam Vital Signs Temp Pulse Resp BP Pulse Ox O2 Del Method 98.6 F 121 H 18 138/89 H 100 Room Air 01/12/25 06:04 01/12/25 06:04 01/12/25 06:04 01/12/25 06:04 01/12/25 06:04 01/12/25 06:04 Narrative Exam General: Alert, anxious and pacing around room Skin: Warm, dry, intact. No rash or ecchymoses. Head: Normocephalic, atraumatic. Eye: Normal conjunctiva, PERRL. Throat: Oral mucosa moist. No obvious lesions in oropharynx. Cardiovascular: Tachycardia, regular rate and rhythm, no murmur, +S1/S2. Respiratory: Lungs are clear to auscultation, respirations unlabored, no crackles, no wheezing. Gastrointestinal: Soft, nontender, non-distended. No guarding or rebound tenderness. Extremities: No edema, no cyanosis, no clubbing. Neuro: Alert and oriented x3.No focal deficits observed. Conversant, moving all extremities. No overt cerebellar signs/incoordination. Psychiatric: Cooperative, appropriate affect Results: Labs 01/11/25 23:05 01/11/25 23:05 Labs: Short CBC 01/11/25 Range/Units 23:05 WBC 9.8 (3.6-11.0) Thou/mm3 Hgb 12.8 (12.0-16.0) g/dL Hct 37.1 (36.0-46.0) % Plt Count 296 D (140-440) Thou/mm3 BMP 01/11/25 23:05 Sodium 143 Potassium 3.5 Chloride 107 Carbon Dioxide 21.2 BUN 9 Creatinine 0.6 Glucose 114 H Calcium 9.1 Cardiac Enzymes 01/11/25 Range/Units 23:05 Troponin I < 0.002 (0.0-0.045) ng/mL Liver Function 01/11/25 Range/Units 23:05 Total Bilirubin 1.2 (0.3-1.2) mg/dL AST 28 (0-34) U/L ALT 24 (10-49) U/L Alkaline Phosphatase 109 (46-116) U/L Albumin 4.6 (3.5-5.0) gm/dL Urine 01/11/25 Range/Units 23:01 Urine Color Lt-Yellow (Lt Yel-Yel) Urine Clarity Clear (Clear/Hazy) Urine pH 6.5 (5.0-7.0) Ur Specific [place] 1.014 (1.001-1.035) Urine Protein Negative (Neg - Trace) Urine Glucose (UA) Negative (Negative) Quality Measures Quality Measures none Medications Home Medications and Allergies Allergies Allergy/AdvReac Type Severity Reaction Status Date / Time FISH Allergy Severe RASH AND Uncoded 01/11/25 06:12 SWELLING Visit Medications Amlodipine Besylate (Amlodipine Besylate 5 Mg Tablet) 5 mg PO QDAY COUNT INCLUDES THE [facility] Stop: 02/11/25 08:59 Diazepam (Diazepam Inj 5 Mg/Ml Vial 2 Ml) 5 mg IVP Q2HR PRN PRN Reason: CIWA SCORE 14-19 Stop: 01/17/25 06:05 Diazepam (Diazepam Inj 5 Mg/Ml Vial 2 Ml) 2.5 mg IVP Q2HR PRN PRN Reason: CIWA SCORE 8-13 Stop: 01/17/25 06:05 Folic Acid (Folic Acid Inj 1 Mg/0.2 Ml) 1 mg IVP QDAY COUNT INCLUDES THE [facility] Stop: 02/11/25 08:59 Lorazepam (Lorazepam 0.5 Mg Tablet) 1 mg PO Q4HR PRN PRN Reason: CIWA SCORE 7-11 Stop: 01/17/25 06:05 Metoprolol Tartrate (Metoprolol Tartrate 25 Mg Tablet) 25 mg PO BID COUNT INCLUDES THE [facility] Stop: 02/11/25 08:59 Ondansetron HCl (Ondansetron Inj 2 Mg/Ml Inj 2 Ml) 4 mg IVP Q6H PRN; Protocol PRN Reason: NAUSEA OR VOMITING Stop: 02/11/25 06:03 Pantoprazole Sodium (Pantoprazole Inj 40 Mg Vial) 40 mg IVP BID COUNT INCLUDES THE [facility] Stop: 02/11/25 08:59 Thiamine HCl (Thiamine Inj 100 Mg/Ml Vial 2 Ml) 100 mg IVP QDAY COUNT INCLUDES THE [facility] Stop: 02/12/25 08:59 Thiamine HCl (Thiamine Inj 100 Mg/Ml Vial 2 Ml) 400 mg IM X1 ONE Stop: 01/12/25 06:12 Discontinued Medications Diazepam (Diazepam Inj 5 Mg/Ml Vial 2 Ml) 2.5 mg IVP X1 ONE Stop: 01/11/25 23:47 Last Admin: 01/12/25 01:18 Dose: 2.5 mg Folic Acid (Folic Acid Inj 1 Mg/0.2 Ml) 1 mg IVP X1 ONE Stop: 01/11/25 23:46 Last Admin: 01/12/25 00:49 Dose: 1 mg Sodium Chloride (Ns) 1,000 mls @ 999 mls/hr IV .Q1H1M ONE Stop: 01/12/25 00:45 Last Infusion: 01/12/25 02:54 Dose: Infused Magnesium Sulfate (Magnesium Sulfate Ivpb) 2 gm in 50 mls @ 25 mls/hr IV X1 ONE Stop: 01/12/25 01:44 Last Infusion: 01/12/25 04:35 Dose: Infused Metoprolol Tartrate (Metoprolol Tartrate Inj 1 Mg/Ml Amp 5 Ml) 2.5 mg IVP X1 ONE Stop: 01/11/25 23:47 Last Admin: 01/12/25 00:47 Dose: 2.5 mg Thiamine HCl (Thiamine Inj 100 Mg/Ml Vial 2 Ml) 100 mg IVP X1 ONE Stop: 01/11/25 23:46 Last Admin: 01/12/25 00:48 Dose: 100 mg Assessment & Plan Plan Patient is a 34 year-old female with past medical history of alcoholism, GERD, HTN who presented to the ED on 01/12/2025 with chief complaint of anxiety. Admitted for observation for alcohol withdrawal additional management #Alcohol withdrawal #Alcohol use dependency Patient has prior admission for alcohol discussion. Has been sober for the past 1 year. However due to social situation patient reports returning back to her drinking 3-5 cocktails per day. CIWA 8 -Alcohol cessation counseling - CIWA protocol -Started folic acid 1 mg daily -Started thiamine for 100 mg daily -Zofran for nausea/ vomiting -Referral to social science analyst. #Substance use Patient denies history of cocaine however UTOX positive for cocaine. - Monitor for withdrawals symptoms -Counseled regarding dangers and consequences. - Consider social service referral #Melena Patient also reported occasional melena when she began drinks however no melena for last few months. H&H is stable, low suspicion for lower GI bleed. Patient actively bleeding - Continue to monitor H&H - Consider outpatient GI follow-up #Primary hypertension Patient for a show medical hypertension on home amlodipine and metoprolol (patient unsure about the dose) -Resumed amlodipine 5 mg p.o. daily -Started metoprolol tartrate 25 mg p.o. twice daily #Hx GERD Patient had EGD done in the past, found some ulcers. She takes no medication for peptic ulcers -Protonix 40 mg IV twice daily Hospital management: Lines: peripheral IV Diet: Peptic ulcer GI prophylaxis: pantoprazole DVT prophylaxis: SCDs Disposition:med/tele for starvation and alcohol withdrawal evaluation and management. CODE STATUS: Full code Patient seen and assessed under supervision of attending physician Dr.Alhalaibeh Mable Clark MD PGY-1, Internal Medicine Please note: this document was transcribed using voice recognition technology; minor inaccuracies may be present. Attending Provider Attestation/Addendum After examination of the patient and review of the clinical data I feel that this patient needs admission to the hospital for further treatment/evaluation. Plan of care discussed with patient and is in agreement. I Cristian Clemente MD, attest that I was physically present for almeida portions of evaluation, and examined patient, labs and imagings and plan of care were discussed with IM residents team, and I agree with the findings and plans documented above.
[2025-01-12] MEDS: THIAMINE INJ 100 MG/ML VIAL 2 ML 400 MG IM (06:41)
--- NOTE | 2025-01-12 06:59 | PC.NURSE ---
Provider at bedside-pt requesting to leave
--- NOTE | 2025-01-12 07:36 | PC.NURSE ---
Per Dr. Oliver he cancelled admission order and patient's aunt will be coming to pick her up and take her home, Dr. Oliver spoke with patient and she wants to leave.
[2025-01-12 07:37] VITALS: BP 141/101; PULSE 133; RESP 18; TEMP 36.8; O2SAT 98
--- NOTE | 2025-01-12 08:25 | PD.EVENT ---
Documentation for date of: 01/12/25 Event Note Event Note: Patient was removed off my list before patient could be evaluated. Per chart review, admission order was cancelled by ER physician and discharged from ED.
== END 2025-01-12 07:50 | disposition home or self-care (01) ==
LOC: SERX 23:06 → SERHOLD 01-12 06:44 → SERX 01-12 07:32
PROVIDERS: Registered Nurse General Practice; Emergency Provider Emergency Medicine; PCP Family Medicine
DX: F14.10 Cocaine abuse, uncomplicated (principal); F10.139 Alcohol abuse with withdrawal, unspecified; R00.0 Tachycardia, unspecified; Y90.8 Blood alcohol level of 240 mg/100 ml or more; I10 Essential (primary) hypertension
CPT/HCPCS: 36415; 80053; 80307; 80320; 81001; 81025; 83615; 83735; 83880; 84484; 85025; 85610; 85730; 93005; 96365; 96366; 96372; 96375; 99284; A4649; J3360; J3411; J3475; J3490; J7030; A9270; G0480

== ENCOUNTER 2025-02-26 12:30 | Emergency (ER) | payer MEDICAID, SELFPAY ==
[2025-02-26 12:34] VITALS: BMI 31.8
[2025-02-26 12:36] VITALS: BP 142/88; PULSE 130; RESP 18; TEMP 37.1; O2SAT 97
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
--- NOTE | 2025-02-26 12:56 | EKG_ITS ---
[facility] Test Date: 2025-02-26 Pat Name: HERBIE GUZMAN Department: Room: - Gender: Female Mandrel Press Hand: : 1990 Requested By: Prashanth Nieves Order Number: [id number] Reading MD: Prashanth Nieves Measurements Intervals [place] Rate: 117 P: 198 RI: 220 QRS: 29 QRSD: 90 T: 28 QT: 369 QTc: 516 Interpretive Statements ECTOPIC ATRIAL TACHYCARDIA WITH FIRST DEGREE AV BLOCK Compared to ECG 01/11/2025 22:44:46 First degree AV block now present Sinus tachycardia no longer present /[id number].pdf
--- NOTE | 2025-02-26 12:56 | XR_ITS ---
EXAMINATION: AP chest single view TECHNIQUE: AP portable upright chest single view Date and time: February 26, 2025, 1309 hours, comparison 9-second 2024 INDICATIONS: Severe coughing beginning 3 days ago. FINDINGS: Early pneumonia left base Normal heart size Reduced inspiratory effort The film is rotated RPO IMPRESSION: Early pneumonia left base
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
[2025-02-26] MEDS: SODIUM CHLORIDE 0.9% 1000 ML 1,000 ML 999 ML IV (13:47)
[2025-02-26 14:00] LABS: Basophils # (Auto) 0.1 Thou/mm3 (0.0-0.2); Basophils % (Auto) 1 % (0-2.5); Eosinophils # (Auto) 0.2 Thou/mm3 (0.0-0.5); Eosinophils % (Auto) 2 % (0-10); Hematocrit 36.9 % (36.0-46.0); Hemoglobin 13.1 g/dL (12.0-16.0); Immature Granulocytes Auto 0.04 Thou/mm3 (0.00-0.00); Lymphocytes # (Auto) 4.0 Thou/mm3 (1.0-4.8); Lymphocytes % (Auto) 45 % (10-50); Mean Corpuscular HGB Conc 35.5 g/dl (31.0-37.0); Mean Corpuscular Hemoglobin 30.2 pg (25.0-35.0); Mean Corpuscular Volume 85 fL (80-100); Monocytes # (Auto) 0.3 Thou/mm3 (0.0-0.8); Monocytes % (Auto) 3 % (0-12); Neutrophils # (Auto) 4.4 Thou/mm3 (1.8-7.7); Neutrophils % (Auto) 49 % (37-80); Nucleated Red Blood Cell # 0.00 Thou/mm3 (0.00-0.00); Nucleated Red Blood Cell % 0 /100 WBC (0); Platelet Count 207 Thou/mm3 (140-440); RDW Standard Deviation 42.2 fL (36.4-46.3); Red Blood Count 4.34 Miln/mm3 (4.00-5.20); White Blood Count 8.9 Thou/mm3 (3.6-11.0)
[2025-02-26 14:01] LABS: INR 1.1 (0.9-1.3); Prothrombin Time 11.2 Seconds (9.0-12.2)
[2025-02-26 14:19] LABS: Alanine Aminotransferase 28 U/L (10-49); Albumin, Serum 4.8 gm/dL (3.5-5.0); Albumin/Globulin Ratio 1.8 (1.2-2.2); Alcohol, Blood Medical 374.8 mg/dL (0-10.0); Alkaline Phosphatase 101 U/L (46-116); Anion Gap 14 (7-16); Aspartate Amino Transferase 34 U/L (0-34); BUN/Creatinine Ratio 10 Ratio (12-20); Bilirubin,Total 1.7 mg/dL (0.3-1.2); Blood Urea Nitrogen 6 mg/dL (9-23); Calcium 8.3 mg/dL (8.3-10.6); Calcium (Corrected) 8.3 mg/dL (8.5-10.1); Carbon Dioxide 24.8 mMol/L (20.0-31.0); Chloride 105 mMol/L (98-107); Creatinine (Component) 0.6 mg/dL (0.6-1.3); Estimated Creatinine Clearance 116.0 mL/min (>60); Globulin 2.6 gm/dL (2.3-3.5); Glucose 96 mg/dL (74-106); Osmolality,Calculated 284 (275-295); Potassium 3.0 mMol/L (3.4-5.1); Sodium 144 mMol/L (136-145); Total Protein 7.4 gm/dL (5.7-8.2); Troponin I < 0.002 ng/mL (0.0-0.045); eGFR > 60 See Note
[2025-02-26 15:36] VITALS: BP 124/100; PULSE 115; RESP 17; TEMP 36.9; O2SAT 98
[2025-02-26 15:44] LABS: HCG,Qualitative Serum Negative
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
[2025-02-26 17:00] VITALS: BP 141/89; PULSE 112; RESP 18; O2SAT 96
== END 2025-02-26 17:04 ==
PROVIDERS: Emergency Provider Family Medicine; PCP Family Medicine
DX: J18.9 Pneumonia, unspecified organism (principal); I10 Essential (primary) hypertension; F41.9 Anxiety disorder, unspecified
CPT/HCPCS: 36415; 70450; 71045; 80053; 80320; 81001; 81025; 84484; 84703; 85025; 85610; 93005; 99284; J7030; A9270; G0480